=== PATIENT | male | born 1940 | race Caucasian/White ===

== ENCOUNTER → 2017-04-21 | Outpatient (CLI) | payer MEDICARE, OTHER ==
[2017-04-21 09:15] LABS: ALANINE AMINOTRANSFERASE 26 U/L (21-72); ALBUMIN 4.1 g/dL (3.5-5.0); ALKALINE PHOSPHATASE 82 U/L (38-126); ANION GAP 12 (5-19); ASPARTATE AMINO TRANSFERASE 16 U/L (17-59); BILIRUBIN,DIRECT 0.3 mg/dL (0.0-0.4); BILIRUBIN,TOTAL 0.6 mg/dL (0.2-1.3); BLOOD UREA NITROGEN 19 mg/dL (7-20); CALCIUM 10.2 mg/dL (8.4-10.2); CARBON DIOXIDE 27 mmol/L (22-30); CHLORIDE 101 mmol/L (98-107); CHOLESTEROL 125.48 mg/dL (0-200); Direct HDL 58 mg/dL (>40); GLUCOSE 211 mg/dL (75-110); MAGNESIUM 1.7 mg/dL (1.6-2.3); POTASSIUM 4.5 mmol/L (3.6-5.0); SODIUM 139.8 mmol/L (137-145); TRIGLYCERIDES 99 mg/dL (<150)
[2017-04-21 09:26] LABS: DIRECT LDL 47 mg/dL (<100)
== END ==
LOC: OD 08:17
PROVIDERS: ATTEND Internal Medicine Cardiovascular Disease
DX: E78.2 Mixed hyperlipidemia (principal); Z79.899 Other long term (current) drug therapy
CPT/HCPCS: 36415; 80048; 80061; 80076; 83735

== ENCOUNTER → 2017-12-29 | Outpatient (CLI) | payer MEDICARE, OTHER ==
[2017-12-29 15:53] LABS: ANION GAP 10 (5-19); BLOOD UREA NITROGEN 20 mg/dL (7-20); CALCIUM 9.2 mg/dL (8.4-10.2); CARBON DIOXIDE 26 mmol/L (22-30); CHLORIDE 103 mmol/L (98-107); GLUCOSE 246 mg/dL (75-110); POTASSIUM 4.5 mmol/L (3.6-5.0); SODIUM 138.7 mmol/L (137-145)
== END ==
LOC: OD 13:58
PROVIDERS: ATTEND Internal Medicine Cardiovascular Disease
DX: E83.42 Hypomagnesemia (principal); Z79.899 Other long term (current) drug therapy
CPT/HCPCS: 36415; 80048; 83735

== ENCOUNTER 2018-02-11 06:51 | Emergency (ER) | payer MEDICARE, OTHER ==
--- NOTE | 2018-02-11 07:55 | ER Document Report ---
ED GI/ - General Chief Complaint: Urinary Problem Stated Complaint: BLOOD IN URINE Time Seen by Provider: 02/11/18 07:17 Mode of Arrival: Ambulatory Information source: Patient Notes: 77 yo smoker c/o painless brown red hematuria since , and in er almost a blood clot with urgency but has some low left pelvic discomfort and some nausea. He thinks he has BPH. No fever, no vomiting or diarrhea. No flank pain. No testicle or scrotal pain. Hx hemorrhoids. Hx agent orange in [place]. TRAVEL OUTSIDE OF THE [place] IN LAST 30 DAYS: No - Related Data Allergies/Adverse Reactions: adhesive [Adhesive] Allergy (Verified 08/09/14 09:57) NSAIDS (Non-Steroidal Anti-Inflamma [Nsaids] Allergy (Verified 08/09/14 09:57) Penicillins Allergy (Verified 08/09/14 09:57) cholera vacine Allergy (Uncoded 04/17/13 23:34) yellow fever vacine Allergy (Uncoded 04/17/13 23:34) Past Medical History - General Information source: Patient - Social History Smoking Status: Current Every Day Smoker Chew tobacco use (# tins/day): No Frequency of alcohol use: None Drug Abuse: None Lives with: Alone Family History: CAD, Other - leukemia Patient has suicidal ideation: No Patient has homicidal ideation: No - Past Medical History Cardiac Medical History: Reports: Hx Coronary Artery Disease, Hx Hypercholesterolemia, Hx Hypertension Endocrine Medical History: Reports: Hx Diabetes Mellitus Type 2 Renal/ Medical History: Reports: Hx Benign Prostatic Hyperplasia, Hx Kidney Stones. Denies: Hx Peritoneal Dialysis GI Medical History: Reports: Hx Gastroesophageal Reflux Disease, Other - External hemorrhoids Musculoskeltal Medical History: Reports Hx Arthritis, Reports Other - ruptured disc low back, DDD Psychiatric Medical History: Reports: Hx Post Traumatic Stress Disorder Past Surgical History: Reports: Hx Cardiac Catheterization, Hx Cardiac Surgery, Hx Coronary Stent - Immunizations Hx Diphtheria, Pertussis, Tetanus Vaccination: Yes Hx Pneumococcal Vaccination: 08/30/10 Review of Systems - Review of Systems Constitutional: No symptoms reported EENT: No symptoms reported Cardiovascular: No symptoms reported Respiratory: No symptoms reported Gastrointestinal: No symptoms reported Genitourinary: No symptoms reported Male Genitourinary: See HPI Musculoskeletal: No symptoms reported Skin: No symptoms reported Hematologic/Lymphatic: No symptoms reported Neurological/Psychological: No symptoms reported Physical Exam - Vital signs Vitals: Temp Pulse Resp BP Pulse Ox 98.3 F 74 18 151/75 H 95 02/11/18 06:57 02/11/18 06:57 02/11/18 06:57 02/11/18 06:57 02/11/18 06:57 Interpretation: Normal - General General appearance: Appears well, Alert - HEENT Head: Normocephalic, Atraumatic Eyes: Normal Conjunctiva: Normal Pupils: PERRL Mucous membranes: Normal Pharynx: Normal Neck: Supple. No: Lymphadenopathy - Respiratory Respiratory status: No respiratory distress Chest status: Nontender Breath sounds: Normal Chest palpation: Normal - Cardiovascular Rhythm: Regular Heart sounds: Normal auscultation Murmur: No - Abdominal Inspection: Normal Distension: No distension Bowel sounds: Normal Tenderness: Tender - mild low left pelvis. No: Guarding, Rebound Organomegaly: No organomegaly - Back Back: Normal, Nontender. No: Tender - Extremities General upper extremity: Normal inspection, Nontender, Normal color, Normal ROM , Normal temperature General lower extremity: Normal inspection, Nontender, Normal color, Normal ROM , Normal temperature, Normal weight bearing. No: Radha's sign - Neurological Neuro grossly intact: Yes Cognition: Normal Orientation: AAOx4 Tanesha Coma Scale Eye Opening: Spontaneous Tanesha Coma Scale Verbal: Oriented Austin Coma Scale Motor: Obeys Commands Tanesha Coma Scale Total: 15 Speech: Normal Motor strength normal: LUE, RUE, LLE, RLE Sensory: Normal - Psychological Associated symptoms: Normal affect, Normal mood - Skin Skin Temperature: Warm Skin Moisture: Dry Skin Color: Normal Course - Re-evaluation Re-evalutation: 02/11/18 09:50 CT shows streaky perinephritic change. 6.8 mm bladder stone. Asymmetric wall thickening right lateral aspect of the urinary bladder concerning for mass. Enlarged prostate. Constipation. Call to dr collier radiologist. about the read. UA shows > 182 rbc, 16 wbc. White count is mildly elevated at 11.1. Hemoglobin and hematocrit are normal. Chemistry is normal except for glucose of 254. He does take metformin. The BUN and creatinine are normal. INR is 1.02 PTT is 35.9. I will discuss with the patient the need for urology evaluation and cystoscopy. Dr. Collier the radiologist stated that there is no other imaging that I can order today to help discern this bladder wall thickening. Will treat with Cipro (allergic to PCN) urine culture is pending - Vital Signs Vital signs: Temp Pulse Resp BP Pulse Ox 98.1 F 95 18 135/79 H 95 02/11/18 10:24 02/11/18 10:24 02/11/18 10:24 02/11/18 10:24 02/11/18 10:24 - Laboratory Result Diagrams: 02/11/18 08:35 02/11/18 08:35 Laboratory results interpreted by me: 02/11/18 02/11/18 02/11/18 07:45 08:35 08:35 WBC 11.1 H RBC 5.69 H Seg Neutrophils % 82.6 H Lymphocytes % 10.4 L Absolute Neutrophils 9.2 H APTT 35.9 H Glucose ALT Urine Protein 100 H Urine Glucose (UA) 150 H Urine Blood LARGE H 02/11/18 08:35 WBC RBC Seg Neutrophils % Lymphocytes % Absolute Neutrophils APTT Glucose 254 H ALT 17 L Urine Protein Urine Glucose (UA) Urine Blood Discharge - Discharge Clinical Impression: Bladder wall thickening, Hematuria, Bladder stone, Enlarged prostate Condition: Good Disposition: HOME, SELF-CARE Instructions: Hematuria ([facility]), Kidney Stone ([facility]) Additional Instructions: Take the lab work and the CD to your primary care [facility] for referral to urology. You will need a urology workup for this bladder wall thickening (possible mass) . If you drink plenty of fluids and urinate long strange you should passed a urinary stone. Take your medications Ciprofloxacin started pending urine culture Prescriptions: Ciprofloxacin HCl [Cipro 500 mg Tablet] 500 mg PO BID #10 tablet Referrals: MICH MOYER MD [NICOLAS DE LA CRUZ] - 02/14/18
[2018-02-11 08:26] LABS: BILIRUBIN,URINE NEGATIVE (NEGATIVE); GLUCOSE, URINE 150 mg/dL (NEGATIVE); KETONES,URINE NEGATIVE (NEGATIVE); LEUKOCYTE ESTERASE,URINE NEGATIVE (NEGATIVE); NITRITE,URINE NEGATIVE (NEGATIVE); PROTEIN,URINE 100 mg/dL (NEGATIVE); URINE SPECIFIC GRAVITY 1.023; UROBILINOGEN,URINE NEGATIVE mg/dL (<2.0)
[2018-02-11 08:28] LABS: APPEARANCE,URINE CLOUDY; COLOR,URINE BROWN
[2018-02-11 08:48] LABS: ABSOLUTE BASOPHILS # (AUTO) 0.1 10^3/uL (0.0-0.2); ABSOLUTE EOSINOPHILS # (AUTO) 0.1 10^3/uL (0.0-0.6); ABSOLUTE LYMPHOCYTES (AUTO) 1.2 10^3/uL (0.5-4.7); ABSOLUTE MONOCYTES (AUTO) 0.6 10^3/uL (0.1-1.4); ABSOLUTE NEUT (AUTO) 9.2 10^3/uL (1.7-8.2); BASOPHILS % (AUTO) 0.6 % (0-2); EOSINOPHILS % (AUTO) 0.9 % (0-6); HEMATOCRIT 48.2 % (37.9-51.0); HEMOGLOBIN 16.3 g/dL (13.5-17.0); LYMPHOCYTES % (AUTO) 10.4 % (13-45); MEAN CORPUSCULAR HEMOGLOBIN 28.6 pg (27.0-33.4); MEAN CORPUSCULAR HGB CONC 33.8 g/dL (32.0-36.0); MEAN CORPUSCULAR VOLUME 85 fl (80-97); MONOCYTES % (AUTO) 5.5 % (3-13); PLATELET COUNT 165 10^3/uL (150-450); RED BLOOD COUNT 5.69 10^6/uL (4.35-5.55); SEGMENTED NEUTROPHILS % (AUTO) 82.6 % (42-78); TOTAL CELLS COUNTED % (AUTO) 100 %; WHITE BLOOD COUNT 11.1 10^3/uL (4.0-10.5)
[2018-02-11 08:56] LABS: INTERNATIONAL RATION (INR) 1.02; PROTHROMBIN TIME 13.9 SEC (11.4-15.4)
[2018-02-11 08:57] LABS: PARTIAL THROMBOPLASTIN TIME 35.9 SEC (23.5-35.8)
[2018-02-11 09:12] LABS: ALANINE AMINOTRANSFERASE 17 U/L (21-72); ALBUMIN 4.1 g/dL (3.5-5.0); ALKALINE PHOSPHATASE 83 U/L (38-126); ANION GAP 11 (5-19); ASPARTATE AMINO TRANSFERASE 25 U/L (17-59); BILIRUBIN,DIRECT 0.4 mg/dL (0.0-0.4); BILIRUBIN,TOTAL 0.7 mg/dL (0.2-1.3); BLOOD UREA NITROGEN 18 mg/dL (7-20); CALCIUM 9.5 mg/dL (8.4-10.2); CARBON DIOXIDE 23 mmol/L (22-30); CHLORIDE 106 mmol/L (98-107); GLUCOSE 254 mg/dL (75-110); SODIUM 140.1 mmol/L (137-145); TOTAL PROTEIN 7.2 g/dL (6.3-8.2)
--- NOTE | 2018-02-11 09:15 | RADIOLOGY REPORT (SQ) ---
EXAM DESCRIPTION: CT LTD RENAL STONE PROTOCOL ON COMPLETED DATE/TIME: 02/11/2018 8:55 am REASON FOR STUDY: LLQ pain, hematuria COMPARISON: None. TECHNIQUE: CT scan of the abdomen and pelvis performed without intravenous or oral contrast. Images reviewed with lung, soft tissue, and bone windows. Reconstructed coronal and sagittal MPR images revi ewed. All images stored on PACS. All CT scanners at this facility use dose modulation, iterative reconstruction, and/or weight based d osing when appropriate to reduce radiation dose to as low as reasonably achievable (ALARA). [facility]: Dose Right [facility]: CareDose [facility]: Dose Right [facility]: Teradose 4D [facility]: Smart Geosophic RADIATION DOSE: CT Rad equipment meets quality standard of care and radiation dose reduction techniq ues were employed. CTDIvol: 10.2 mGy. DLP: 542 mGy-cm.mGy. LIMITATIONS: None. FINDINGS: LOWER CHEST: No significant findings. No nodules or infiltrates. NON-CONTRASTED LIVER, SPLEEN, ADRENALS: Evaluation limited by lack of IV contrast. No identified sign ificant masses. PANCREAS: No masses. No peripancreatic inflammatory changes. GALLBLADDER: No identified stones by CT criteria. No inflammatory changes to suggest cholecystitis. RIGHT KIDNEY AND URETER: No renal masses identified. There is slight streaky perinephric change. N o significant calcifications. No hydronephrosis or hydroureter. LEFT KIDNEY AND URETER: No renal mass identified. There is slight streaky perinephric change. No s ignificant calcifications. No hydronephrosis or hydroureter. AORTA AND RETROPERITONEUM: Dense aortic calcification without aneurysm. BOWEL AND PERITONEAL CAVITY: Increase air and fecal material fills the right colon and transverse col on. APPENDIX: Not seen PELVIS, BLADDER, AND ABDOMINAL WALL:Urinary bladder is not dilated. Prostate enlarged. 6.8 mm bladd er calcification concerning for stone. Asymmetric wall thickening right lateral aspect urinary bladd er concerning for mass. Bulging left inguinal ring contains peritoneal fat. BONES: No significant findings. OTHER: No other significant finding. IMPRESSION: No stone or hydronephrosis of either kidney. Streaky perinephric change is noted. 6.8 mm bladder stone. Asymmetric wall thickening right lateral aspect of the urinary bladder concern ing for mass. Enlarged prostate. Constipation. COMMENT: Quality ID # [id number]: Final reports with documentation of one or more dose reduction techniques (e.g., Automated exposure control, adjustment of the mA and/or kV according to patient size, use of iterative reconstruction technique) TECHNICAL DOCUMENTATION: JOB ID: [id number] [employer]- All Rights Reserved Reading location - IP/workstation name: [email or web address]
[2018-02-11] MEDS ORDERED: CIPROFLOXACIN HCL 500 MG TABLET PO ONE (10:21)
[2018-02-11 10:26] VITALS: BP 135/79
== END 2018-02-11 10:25 | disposition home or self-care (01) ==
LOC: ER 06:51
DX: N32.9 Bladder disorder, unspecified (principal); N21.0 Calculus in bladder; N40.0 Benign prostatic hyperplasia without lower urinary tract symptoms; R31.9 Hematuria, unspecified; R39.15 Urgency of urination; R10.2 Pelvic and perineal pain; R11.0 Nausea; F17.200 Nicotine dependence, unspecified, uncomplicated; I25.10 Atherosclerotic heart disease of native coronary artery without angina pectoris; I10 Essential (primary) hypertension; E11.9 Type 2 diabetes mellitus without complications
CPT/HCPCS: 36415; 76380; 80053; 81001; 85025; 85610; 85730; 87086; 99284

== ENCOUNTER → 2019-01-06 | Outpatient (CLI) | payer MEDICARE, OTHER ==
[2019-01-06 10:53] LABS: ALANINE AMINOTRANSFERASE 26 U/L (21-72); ALKALINE PHOSPHATASE 93 U/L (38-126); ANION GAP 12 (5-19); ASPARTATE AMINO TRANSFERASE 14 U/L (17-59); BILIRUBIN,DIRECT 0.3 mg/dL (0.0-0.4); BILIRUBIN,TOTAL 0.5 mg/dL (0.2-1.3); BLOOD UREA NITROGEN 16 mg/dL (7-20); CALCIUM 9.4 mg/dL (8.4-10.2); CARBON DIOXIDE 25 mmol/L (22-30); CHLORIDE 105 mmol/L (98-107); CHOLESTEROL 107.19 mg/dL (0-200); GLUCOSE 137 mg/dL (75-110); SODIUM 141.9 mmol/L (137-145); TOTAL PROTEIN 6.8 g/dL (6.3-8.2); TRIGLYCERIDES 101 mg/dL (<150)
[2019-01-06 11:04] LABS: DIRECT LDL 51 mg/dL (<100)
== END ==
LOC: OD 09:31
PROVIDERS: ATTEND Internal Medicine Cardiovascular Disease
DX: E83.42 Hypomagnesemia (principal); E78.2 Mixed hyperlipidemia; I95.9 Hypotension, unspecified; Z79.899 Other long term (current) drug therapy
CPT/HCPCS: 36415; 80048; 80061; 80076; 83735

== ENCOUNTER → 2019-04-13 | Outpatient (CLI) | payer MEDICARE, OTHER ==
[2019-04-13 16:32] LABS: HEMATOCRIT 48.5 % (37.9-51.0); HEMOGLOBIN 16.1 g/dL (13.5-17.0); MEAN CORPUSCULAR HEMOGLOBIN 28.1 pg (27.0-33.4); MEAN CORPUSCULAR HGB CONC 33.3 g/dL (32.0-36.0); MEAN CORPUSCULAR VOLUME 85 fl (80-97); PLATELET COUNT 170 10^3/uL (150-450); RED BLOOD COUNT 5.74 10^6/uL (4.35-5.55); RED CELL DISTRIBUTION WIDTH 14.5 % (11.5-14.0)
== END ==
LOC: OD 15:11
PROVIDERS: ATTEND Internal Medicine Cardiovascular Disease
DX: I25.10 Atherosclerotic heart disease of native coronary artery without angina pectoris (principal); E83.42 Hypomagnesemia; Z79.899 Other long term (current) drug therapy
CPT/HCPCS: 36415; 83735; 85027

== ENCOUNTER → 2019-07-19 | Outpatient (CLI) | payer MEDICARE, OTHER ==
[2019-07-19 17:34] LABS: ALBUMIN 3.9 g/dL (3.5-5.0); ALKALINE PHOSPHATASE 83 U/L (38-126); ANION GAP 11 (5-19); ASPARTATE AMINO TRANSFERASE 16 U/L (17-59); BILIRUBIN,DIRECT 0.2 mg/dL (0.0-0.4); BILIRUBIN,TOTAL 0.5 mg/dL (0.2-1.3); BLOOD UREA NITROGEN 18 mg/dL (7-20); CALCIUM 9.1 mg/dL (8.4-10.2); CARBON DIOXIDE 21 mmol/L (22-30); CHLORIDE 105 mmol/L (98-107); CHOLESTEROL 132.43 mg/dL (0-200); GLUCOSE 196 mg/dL (75-110); POTASSIUM 4.6 mmol/L (3.6-5.0); TOTAL PROTEIN 7.2 g/dL (6.3-8.2); TRIGLYCERIDES 109 mg/dL (<150)
[2019-07-19 17:44] LABS: DIRECT LDL 64 mg/dL (<100)
== END ==
LOC: OD 15:42
PROVIDERS: ATTEND Physician Assistant
DX: E78.2 Mixed hyperlipidemia (principal); E11.9 Type 2 diabetes mellitus without complications; E83.42 Hypomagnesemia; Z79.899 Other long term (current) drug therapy
CPT/HCPCS: 36415; 80048; 80061; 80076; 83735

== ENCOUNTER → 2019-10-18 | Outpatient (CLI) | payer MEDICARE, OTHER ==
[2019-10-18 13:42] LABS: ALBUMIN 3.9 g/dL (3.5-5.0); ALKALINE PHOSPHATASE 95 U/L (38-126); ANION GAP 10 (5-19); ASPARTATE AMINO TRANSFERASE 15 U/L (17-59); BILIRUBIN,TOTAL 0.5 mg/dL (0.2-1.3); BLOOD UREA NITROGEN 15 mg/dL (7-20); CALCIUM 9.9 mg/dL (8.4-10.2); CARBON DIOXIDE 27 mmol/L (22-30); CHLORIDE 101 mmol/L (98-107); CHOLESTEROL 146.43 mg/dL (0-200); GLUCOSE 283 mg/dL (75-110); POTASSIUM 4.5 mmol/L (3.6-5.0); TOTAL PROTEIN 6.9 g/dL (6.3-8.2); TRIGLYCERIDES 180 mg/dL (<150)
[2019-10-18 13:52] LABS: DIRECT LDL 70 mg/dL (<100)
== END ==
LOC: OD 12:40
PROVIDERS: ATTEND Physician Assistant
DX: E78.2 Mixed hyperlipidemia (principal); E11.9 Type 2 diabetes mellitus without complications; Z79.899 Other long term (current) drug therapy
CPT/HCPCS: 36415; 80048; 80061; 80076; 83735; 87070

== ENCOUNTER → 2020-02-14 | Outpatient (CLI) | payer MEDICARE, OTHER ==
[2020-02-14 17:55] LABS: ALKALINE PHOSPHATASE 75 U/L (38-126); ASPARTATE AMINO TRANSFERASE 16 U/L (17-59); BILIRUBIN,DIRECT 0.1 mg/dL (0.0-0.4); BILIRUBIN,TOTAL 0.6 mg/dL (0.2-1.3); CHOLESTEROL 107.66 mg/dL (0-200); TOTAL PROTEIN 6.8 g/dL (6.3-8.2); TRIGLYCERIDES 133 mg/dL (<150)
[2020-02-14 18:07] LABS: DIRECT LDL 41 mg/dL (<100)
== END ==
LOC: OD 15:50
PROVIDERS: ATTEND Physician Assistant
DX: E78.2 Mixed hyperlipidemia (principal); Z79.899 Other long term (current) drug therapy
CPT/HCPCS: 36415; 80061; 80076

== ENCOUNTER 2020-03-14 16:29 | Inpatient (IN) | payer MEDICARE, OTHER ==
[2020-03-14 18:35] LABS: ABSOLUTE BASOPHILS # (AUTO) 0.1 10^3/uL (0.0-0.2); ABSOLUTE EOSINOPHILS # (AUTO) 0.1 10^3/uL (0.0-0.6); ABSOLUTE LYMPHOCYTES (AUTO) 1.1 10^3/uL (0.5-4.7); ABSOLUTE MONOCYTES (AUTO) 1.1 10^3/uL (0.1-1.4); ABSOLUTE NEUT (AUTO) 13.8 10^3/uL (1.7-8.2); BASOPHILS % (AUTO) 0.4 % (0-2); EOSINOPHILS % (AUTO) 0.7 % (0-6); HEMATOCRIT 44.5 % (37.9-51.0); HEMOGLOBIN 15.1 g/dL (13.5-17.0); LYMPHOCYTES % (AUTO) 6.7 % (13-45); MEAN CORPUSCULAR HEMOGLOBIN 28.3 pg (27.0-33.4); MEAN CORPUSCULAR HGB CONC 33.9 g/dL (32.0-36.0); MEAN CORPUSCULAR VOLUME 84 fl (80-97); MONOCYTES % (AUTO) 6.9 % (3-13); PLATELET COUNT 191 10^3/uL (150-450); RED BLOOD COUNT 5.31 10^6/uL (4.35-5.55); RED CELL DISTRIBUTION WIDTH 14.6 % (11.5-14.0); SEGMENTED NEUTROPHILS % (AUTO) 85.3 % (42-78); TOTAL CELLS COUNTED % (AUTO) 100 %; WHITE BLOOD COUNT 16.2 10^3/uL (4.0-10.5)
--- NOTE | 2020-03-14 18:46 | RADIOLOGY REPORT (SQ) ---
EXAM DESCRIPTION: FOREARM RIGHT IMAGES COMPLETED DATE/TIME: 03/14/2020 6:36 pm REASON FOR STUDY: fell/ cellulitis COMPARISON: None. NUMBER OF VIEWS: Two views. TECHNIQUE: Two radiographic images acquired of the right forearm, including elbow and wrist in at le ast one projection. LIMITATIONS: None. FINDINGS: MINERALIZATION: Normal. BONES: No acute fracture. No worrisome bone lesions. SOFT TISSUES: No obvious swelling or foreign body. OTHER: No other significant finding. IMPRESSION: NEGATIVE STUDY OF THE RIGHT FOREARM. NO RADIOGRAPHIC EVIDENCE OF ACUTE INJURY. TECHNICAL DOCUMENTATION: JOB ID: [id number] 2010 [employer]- All Rights Reserved Reading location - IP/workstation name: [email or web address]
[2020-03-14 19:00] LABS: ALBUMIN 3.5 g/dL (3.5-5.0); ALKALINE PHOSPHATASE 74 U/L (38-126); ANION GAP 11 (5-19); ASPARTATE AMINO TRANSFERASE 16 U/L (17-59); BILIRUBIN,TOTAL 0.7 mg/dL (0.2-1.3); BLOOD UREA NITROGEN 14 mg/dL (7-20); CALCIUM 8.8 mg/dL (8.4-10.2); CARBON DIOXIDE 24 mmol/L (22-30); CHLORIDE 98 mmol/L (98-107); GLUCOSE 173 mg/dL (75-110); POTASSIUM 4.4 mmol/L (3.6-5.0); TOTAL PROTEIN 6.6 g/dL (6.3-8.2)
--- NOTE | 2020-03-14 19:00 | RADIOLOGY REPORT (SQ) ---
EXAM DESCRIPTION: CHEST SINGLE VIEW IMAGES COMPLETED DATE/TIME: 03/14/2020 6:36 pm REASON FOR STUDY: fell COMPARISON: 08/09/2014 EXAM PARAMETERS: NUMBER OF VIEWS: One view. TECHNIQUE: Single frontal radiographic view of the chest acquired. RADIATION DOSE: NA LIMITATIONS: None. FINDINGS: LUNGS AND PLEURA: No opacities, masses or pneumothorax. No pleural effusion. MEDIASTINUM AND HILAR STRUCTURES: No masses. Contour normal. HEART AND VASCULAR STRUCTURES: Heart normal in size. Normal vasculature. BONES: No acute findings. HARDWARE: None in the chest. OTHER: No other significant finding. IMPRESSION: NO ACUTE RADIOGRAPHIC FINDING IN THE CHEST. TECHNICAL DOCUMENTATION: JOB ID: [id number] 2010 [employer]- All Rights Reserved Reading location - IP/workstation name: [email or web address]
[2020-03-14] MEDS ORDERED: INSULIN ASPART PROTAMINE SUBCUT SCH (19:30)
[2020-03-14] MEDS ORDERED: (PENDING PHARMACY ID) (Rosuvastatin Calcium [Crestor 20 Mg Tablet] 20 MG) PO SCH (19:30)
[2020-03-14] MEDS ORDERED: [UNRECOGNIZED DRUG - OTHER] SUBCUT SCH (19:30)
[2020-03-14] MEDS ORDERED: INSULIN ASPART SUBCUT SCH (19:30)
[2020-03-14] MEDS: VANCOMYCIN HCL 1,000 MG in DEXTROSE 5%-WATER 250 ML IV SCH (19:57)
[2020-03-14] MEDS: ENOXAPARIN SODIUM INJ 40 MG/0.4 ML DISP.SYRIN SUBCUT SCH (19:57)
[2020-03-14] MEDS: OXYCODONE HCL IR 5 MG TABLET PO SCH (19:57)
[2020-03-14] MEDS: EZETIMIBE 10 MG TABLET PO SCH (19:57)
[2020-03-14] MEDS: ASPIRIN 81 MG TABLET, ENT COATED PO SCH (19:57)
[2020-03-14] MEDS: MAGNESIUM OXIDE 400 MG TABLET PO SCH (20:07)
[2020-03-14] MEDS: SITAGLIPTIN PHOSPHATE 50 MG TABLET PO SCH (20:08)
--- NOTE | 2020-03-14 21:12 | PDOC H&P ---
History of Present Illness Admission Date/PCP: 03/14/20 16:29 RAUL VEGA MD History of Present Illness: MILLA HENDERSON is a 79 year old male.He came to the office today as a new patient evaluation, history of repeated fall, history of diabetes mellitus, ongoing tobacco abuse, COPD, he has severe cellulitis of the right upper extremities there are also areas of cellulitis on the left he also have ulcerated lesion on the left leg, because of the severe cellulitis, his unkept state I felt patient best plan of care will be inpatient care, he was admitted directly from the office to the hospital for management.The complete blood count revealed leukocytosis, WBC 16.2 with a left shift Past Medical History Cardiac Medical History: Reports: Coronary Artery Disease, Hyperlipidema, Hypertension Pulmonary Medical History: Reports: Chronic Obstructive Pulmonary Disease (COPD) Endocrine Medical History: Reports: Diabetes Mellitus Type 2 GI Medical History: Reports: Gastroesophageal Reflux Disease Musculoskeltal Medical History: Reports: Arthritis Psychiatric Medical History: Reports: Depression, Post Traumatic Stress Disorder Past Surgical History Past Surgical History: Reports: Cardiac Catheterization, Coronary Stent, Orthopedic Surgery - back from ruptured disc Social History Smoking Status: Current Every Day Smoker Cigarettes Packs Per Day: 3 Number of Years Smokin Last Time Smoked: 03/14/2020 Frequency of Alcohol Use: None Hx Recreational Drug Use: No Drugs: None Hx Prescription Drug Abuse: No Family History Family History: CAD, Other - leukemia Parental Family History Reviewed: Yes Children Family History Reviewed: Yes Sibling(s) Family History Reviewed.: Yes Medication/Allergy Home Medications: Gabapentin [Neurontin] 600 mg PO QID 04/17/13 Rosuvastatin Calcium [Crestor 20 mg Tablet] 20 mg PO DAILY 04/17/13 Aspirin [Ecotrin 81 mg EC Tablet] 81 mg PO DAILY 03/14/20 Ezetimibe 10 mg PO DAILY 03/14/20 Insulin Aspart Prot/Insuln Asp [Novolog Mix 70-30 Flexpen] 26 unit SUBCUT MEALS 03/14/20 Magnesium Oxide 1,600 mg PO DAILY 03/14/20 Omeprazole 20 mg PO DAILY 03/14/20 Oxycodone HCl [Oxy-Ir 5 mg Tablet] 15 mg PO 5XD 03/14/20 Sitagliptin Phosphate [Januvia 50 mg Tablet] 100 mg PO DAILY 07/16/20 Allergies/Adverse Reactions: adhesive [Adhesive] Allergy (Verified 08/09/14 09:57) NSAIDS (Non-Steroidal Anti-Inflamma [Nsaids] Allergy (Verified 08/09/14 09:57) Penicillins Allergy (Verified 08/09/14 09:57) cholera vacine Allergy (Uncoded 04/17/13 23:34) yellow fever vacine Allergy (Uncoded 04/17/13 23:34) Review of Systems Constitutional: PRESENT: fatigue Eyes: ABSENT: visual disturbances Ears: ABSENT: hearing changes Cardiovascular: ABSENT: chest pain, dyspnea on exertion, edema, orthropnea, palpitations Respiratory: ABSENT: cough, hemoptysis Gastrointestinal: ABSENT: abdominal pain, constipation, diarrhea, hematemesis, hematochezia, nausea, vomiting Genitourinary: ABSENT: dysuria, hematuria Musculoskeletal: ABSENT: joint swelling Integumentary: PRESENT: erythema Neurological: ABSENT: abnormal gait, abnormal speech, confusion, dizziness, focal weakness, syncope Psychiatric: ABSENT: anxiety, depression, homidical ideation, suicidal ideation Endocrine: ABSENT: cold intolerance, heat intolerance, menstrual abnormalities, polydipsia, polyuria Hematologic/Lymphatic: ABSENT: easy bleeding, easy bruising, lymphadenopathy Physical Exam Vital Signs: Temp Pulse Resp BP Pulse Ox 98.4 F 82 18 138/65 H 95 03/14/20 19:33 03/14/20 19:33 03/14/20 19:33 03/14/20 19:33 03/14/20 19:33 Intake & Output 03/13/20 03/14/20 03/15/20 06:59 06:59 06:59 Intake Total 240 Balance 240 Weight 71.817 kg General appearance: PRESENT: other - Patient elderly male not in obvious distress, looks chronically ill Head exam: PRESENT: atraumatic, normocephalic Eye exam: PRESENT: PERRLA Ear exam: PRESENT: normal external ear exam Mouth exam: PRESENT: moist Neck exam: PRESENT: full ROM Respiratory exam: PRESENT: clear to auscultation carmen Cardiovascular exam: PRESENT: RRR, +S1, +S2 Vascular exam: PRESENT: normal capillary refill GI/Abdominal exam: PRESENT: normal bowel sounds, soft Rectal exam: PRESENT: deferred Neurological exam: PRESENT: alert, CN II-XII grossly intact Psychiatric exam: PRESENT: appropriate affect, normal mood Skin exam: PRESENT: dry, erythema, intact, warm Results Laboratory Results: 03/14/20 18:19 03/14/20 18:19 03/14/20 03/14/20 18:19 18:19 WBC 16.2 H RBC 5.31 Hgb 15.1 Hct 44.5 MCV 84 MCH 28.3 MCHC 33.9 RDW 14.6 H Plt Count 191 Seg Neutrophils % 85.3 H Sodium 133.3 L Potassium 4.4 Chloride 98 Carbon Dioxide 24 Anion Gap 11 BUN 14 Creatinine 0.75 Est GFR ( Amer) > 60 Glucose 173 H Calcium 8.8 Total Bilirubin 0.7 AST 16 L Alkaline Phosphatase 74 Total Protein 6.6 Albumin 3.5 Impressions: Chest X-Ray 03/14/20 00:00 IMPRESSION: NO ACUTE RADIOGRAPHIC FINDING IN THE CHEST. Forearm X-Ray 03/14/20 00:00 IMPRESSION: NEGATIVE STUDY OF THE RIGHT FOREARM. NO RADIOGRAPHIC EVIDENCE OF ACUTE INJURY. Assessment & Plan - Diagnosis (1) Cellulitis of left upper extremity Is this a current diagnosis for this admission?: Yes Plan: Patient was admitted with severe cellulitis, he will empirically be treated with IV antibiotic to cover MRSA, gram-negative organisms, gram-positive organisms (2) T2DM (type 2 diabetes mellitus) Qualifiers: Diabetes mellitus [facility] insulin use: without [facility] use Diabetes mellitus complication status: with neurologic complications Diabetes mellitus complication detail: with polyneuropathy Qualified Code(s): E11.42 - Type 2 diabetes mellitus with diabetic polyneuropathy Is this a current diagnosis for this admission?: Yes Plan: Continue medication for diabetes (3) COPD (chronic obstructive pulmonary disease) Qualifiers: COPD type: unspecified COPD Qualified Code(s): J44.9 - Chronic obstructive pulmonary disease, unspecified Is this a current diagnosis for this admission?: Yes
[2020-03-14 21:49] LABS: APPEARANCE,URINE SLIGHTLY-CLOUDY; BILIRUBIN,URINE NEGATIVE (NEGATIVE); GLUCOSE, URINE 150 mg/dL (NEGATIVE); KETONES,URINE 20 mg/dL (NEGATIVE); LEUKOCYTE ESTERASE,URINE NEGATIVE (NEGATIVE); NITRITE,URINE NEGATIVE (NEGATIVE); PROTEIN,URINE 30 mg/dL (NEGATIVE); URINE SPECIFIC GRAVITY 1.026
[2020-03-14 21:51] LABS: COLOR,URINE YELLOW
[2020-03-14] MEDS: PIPERACILLIN SODIUM/TAZOBACTAM 3.375 GM in NORMAL SALINE 100 ML IV SCH (21:52)
[2020-03-14] MEDS: MAG HYDROX/AL HYDROX/SIMETH SUSP 30 ML UDCUP PO PRN (21:52)
[2020-03-14] MEDS: GABAPENTIN 300 MG CAPSULE PO SCH (21:52)
[2020-03-14] MEDS ORDERED: ATORVASTATIN CALCIUM 40 MG TABLET PO SCH (22:00)
[2020-03-15] MEDS ORDERED: DEXTROSE 40% GEL 15 GM TUBE PO PRN (02:30)
[2020-03-15] MEDS ORDERED: DEXTROSE 40% GEL 15 GM TUBE X 2 PO PRN (02:30)
[2020-03-15] MEDS ORDERED: DEXTROSE 50%-WATER SYRINGE 25 GM/50 ML DOSE IV PRN (02:30)
[2020-03-15] MEDS ORDERED: DEXTROSE 50%-WATER SYRINGE 12.5 GM/25 ML DOSE IV PRN (02:30)
[2020-03-15] MEDS ORDERED: GLUCAGON,HUMAN RECOMB 1 MG INJ IM PRN (02:30)
[2020-03-15] MEDS ORDERED: OXYCODONE HCL IR 5 MG TABLET PO ONE (02:30)
[2020-03-15] MEDS: ONDANSETRON HCL INJ/PF 4 MG/2 ML SDV IV PRN ×3 (02:33→11:35)
[2020-03-15] MEDS: PIPERACILLIN SODIUM/TAZOBACTAM 3.375 GM in NORMAL SALINE 100 ML IV SCH ×3 (05:50→21:32)
[2020-03-15] MEDS ORDERED: PANTOPRAZOLE SODIUM 20 MG TABLET.DR PO SCH (06:00)
[2020-03-15] MEDS: MAG HYDROX/AL HYDROX/SIMETH SUSP 30 ML UDCUP PO PRN (07:45)
[2020-03-15] MEDS: OXYCODONE HCL IR 5 MG TABLET PO SCH ×2 (07:46→09:39)
[2020-03-15] MEDS ORDERED: INSULIN ASPART SUBCUT SCH (08:00)
[2020-03-15] MEDS ORDERED: HUM INSULIN NPH/REG INSULIN HM 100 UNIT/1 ML 3 ML SUBCUT SCH (08:00)
[2020-03-15] MEDS ORDERED: INSULIN ASPART PROTAMINE SUBCUT SCH (08:00)
[2020-03-15] MEDS ORDERED: [UNRECOGNIZED DRUG - OTHER] SUBCUT SCH (08:00)
[2020-03-15] MEDS: INSULIN LISPRO 100 UNIT/ML 3 ML VIAL SUBCUT SCH ×3 (08:13→17:56)
[2020-03-15] MEDS: VANCOMYCIN HCL 1,000 MG in DEXTROSE 5%-WATER 250 ML IV SCH ×2 (08:13→20:40)
[2020-03-15] MEDS: SITAGLIPTIN PHOSPHATE 50 MG TABLET PO SCH (09:39)
[2020-03-15] MEDS: EZETIMIBE 10 MG TABLET PO SCH (09:39)
[2020-03-15] MEDS: GABAPENTIN 300 MG CAPSULE PO SCH (09:39)
[2020-03-15] MEDS: MAGNESIUM OXIDE 400 MG TABLET PO SCH (09:39)
[2020-03-15] MEDS: ASPIRIN 81 MG TABLET, ENT COATED PO SCH (09:39)
[2020-03-15] MEDS: ENOXAPARIN SODIUM INJ 40 MG/0.4 ML DISP.SYRIN SUBCUT SCH (09:40)
[2020-03-15] MEDS ORDERED: PHARMACY COMMUNICATION ORDER MC NR (13:15)
[2020-03-15] MEDS ORDERED: MAG HYDROX/AL HYDROX/SIMETH SUSP 30 ML UDCUP NG PRN (13:30)
--- NOTE | 2020-03-15 14:33 | RADIOLOGY REPORT (SQ) ---
EXAM DESCRIPTION: KUB/ABDOMEN (SINGLE VIEW) IMAGES COMPLETED DATE/TIME: 03/15/2020 2:18 pm REASON FOR STUDY: Check Placement of NG Tube COMPARISON: None. NUMBER OF VIEWS: One view. TECHNIQUE: Supine radiographic image of the abdomen acquired. LIMITATIONS: None. FINDINGS: Limited view the abdomen was submitted for NG tube placement. Catheter tip lies in the le ft upper quadrant most likely within stomach. IMPRESSION: Limited view the abdomen for NG tube placement as described. TECHNICAL DOCUMENTATION: JOB ID: [id number] 2010 [employer]- All Rights Reserved Reading location - IP/workstation name: [email or web address]
[2020-03-15] MEDS: GABAPENTIN 300 MG CAPSULE NG SCH ×2 (14:48→17:57)
[2020-03-15 15:34] LABS: HEMATOCRIT 46.2 % (37.9-51.0); HEMOGLOBIN 15.4 g/dL (13.5-17.0); MEAN CORPUSCULAR HEMOGLOBIN 28.1 pg (27.0-33.4); MEAN CORPUSCULAR HGB CONC 33.4 g/dL (32.0-36.0); MEAN CORPUSCULAR VOLUME 84 fl (80-97); PLATELET COUNT 255 10^3/uL (150-450); RED BLOOD COUNT 5.48 10^6/uL (4.35-5.55); RED CELL DISTRIBUTION WIDTH 14.6 % (11.5-14.0); WHITE BLOOD COUNT 19.4 10^3/uL (4.0-10.5)
[2020-03-15] MEDS: OXYCODONE HCL IR 5 MG TABLET NG SCH ×2 (15:49→21:09)
[2020-03-15 16:09] LABS: ABSOLUTE MONOCYTES # (MANUAL) 0.4 10^3/uL (0.1-1.4); BASOPHILS % (MANUAL) 0 % (0-2); EOSINOPHILS % (MANUAL) 0 % (0-6); LYMPHOCYTES % (MANUAL) 4 % (13-45); MONOCYTES % (MANUAL) 2 % (3-13); SEGMENTED NEUTROPHILS % (MAN) 93 % (42-78); TOTAL CELLS COUNTED 100
[2020-03-15 16:10] LABS: ANISOCYTOSIS SLIGHT; OVALOCYTES SLIGHT; PLATELET COMMENT ADEQUATE; POIKILOCYTOSIS SLIGHT
[2020-03-15] MEDS: PANTOPRAZOLE SODIUM 40 MG VIAL IV SCH (17:57)
[2020-03-15 18:19] LABS: HEMATOCRIT 44.4 % (37.9-51.0); MEAN CORPUSCULAR HEMOGLOBIN 28.4 pg (27.0-33.4); MEAN CORPUSCULAR HGB CONC 33.8 g/dL (32.0-36.0); MEAN CORPUSCULAR VOLUME 84 fl (80-97); PLATELET COUNT 226 10^3/uL (150-450); RED BLOOD COUNT 5.28 10^6/uL (4.35-5.55); RED CELL DISTRIBUTION WIDTH 14.6 % (11.5-14.0); WHITE BLOOD COUNT 18.8 10^3/uL (4.0-10.5)
[2020-03-15 18:37] LABS: ABSOLUTE LYMPHOCYTES# (MANUAL) 1.1 10^3/uL (0.5-4.7); ABSOLUTE MONOCYTES # (MANUAL) 0.2 10^3/uL (0.1-1.4); BASOPHILS % (MANUAL) 0 % (0-2); EOSINOPHILS % (MANUAL) 0 % (0-6); LYMPHOCYTES % (MANUAL) 6 % (13-45); MONOCYTES % (MANUAL) 1 % (3-13); SEGMENTED NEUTROPHILS % (MAN) 93 % (42-78); TOTAL CELLS COUNTED 100
[2020-03-15 18:39] LABS: ALBUMIN 3.4 g/dL (3.5-5.0); ALKALINE PHOSPHATASE 73 U/L (38-126); ANION GAP 12 (5-19); ANISOCYTOSIS SLIGHT; ASPARTATE AMINO TRANSFERASE 21 U/L (17-59); BILIRUBIN,DIRECT 0.1 mg/dL (0.0-0.4); BILIRUBIN,TOTAL 0.7 mg/dL (0.2-1.3); BLOOD UREA NITROGEN 27 mg/dL (7-20); CALCIUM 8.5 mg/dL (8.4-10.2); CARBON DIOXIDE 31 mmol/L (22-30); CHLORIDE 92 mmol/L (98-107); GLUCOSE 274 mg/dL (75-110); OVALOCYTES SLIGHT; PLATELET COMMENT ADEQUATE; POIKILOCYTOSIS SLIGHT; POTASSIUM 3.5 mmol/L (3.6-5.0); TOTAL PROTEIN 6.4 g/dL (6.3-8.2); TOXIC GRANULATION SLIGHT
[2020-03-15 18:40] LABS: PLATELET LARGE PRESENT
--- NOTE | 2020-03-15 19:41 | PDOC PROGRESS REPORT ---
Subjective Progress Note for:: 03/15/20 Subjective:: Patient seen by the bedside, he developed hematemesis, severe, coffee-ground, nasogastric tube inserted Reason For Visit: CELLULITIS OF RIGHT ARM,T2DM,FALLS,OPORD DEPEDENCE Physical Exam Vital Signs: Temp Pulse Resp BP Pulse Ox 97.8 F 93 17 133/72 H 96 03/15/20 16:30 03/15/20 16:30 03/15/20 16:30 03/15/20 16:30 03/15/20 16:30 Intake & Output 03/14/20 03/15/20 03/16/20 06:59 06:59 06:59 Intake Total 990 590 Output Total 450 2250 Balance 540 -1660 Weight 67.7 kg 67.7 kg General appearance: PRESENT: no acute distress Eye exam: PRESENT: PERRLA Respiratory exam: PRESENT: clear to auscultation carmen Cardiovascular exam: PRESENT: +S1, +S2 GI/Abdominal exam: PRESENT: soft Neurological exam: PRESENT: alert Results Laboratory Results: 03/15/20 17:40 03/15/20 17:40 03/14/20 03/15/20 03/15/20 21:25 14:30 17:40 WBC 19.4 H RBC 5.48 Hgb 15.4 Hct 46.2 MCV 84 MCH 28.1 MCHC 33.4 RDW 14.6 H Plt Count 255 Seg Neutrophils % Not Reportable Sodium 135.4 L Potassium 3.5 L Chloride 92 L Carbon Dioxide 31 H Anion Gap 12 BUN 27 H Creatinine 0.70 Est GFR ( Amer) > 60 Glucose 274 H Calcium 8.5 Total Bilirubin 0.7 AST 21 Alkaline Phosphatase 73 Total Protein 6.4 Albumin 3.4 L Urine Color YELLOW Urine Appearance SLIGHTLY-CLOUDY Urine pH 5.0 Ur Specific Jaffrey 1.026 Urine Protein 30 H Urine Glucose (UA) 150 H Urine Ketones 20 H Urine Blood NEGATIVE Urine Nitrite NEGATIVE Ur Leukocyte Esterase NEGATIVE Urine WBC (Auto) 2 Urine RBC (Auto) 2 03/15/20 17:40 WBC 18.8 H RBC 5.28 Hgb 15.0 Hct 44.4 MCV 84 MCH 28.4 MCHC 33.8 RDW 14.6 H Plt Count 226 Seg Neutrophils % Not Reportable Sodium Potassium Chloride Carbon Dioxide Anion Gap BUN Creatinine Est GFR ( Amer) Glucose Calcium Total Bilirubin AST Alkaline Phosphatase Total Protein Albumin Urine Color Urine Appearance Urine pH Ur Specific Jaffrey Urine Protein Urine Glucose (UA) Urine Ketones Urine Blood Urine Nitrite Ur Leukocyte Esterase Urine WBC (Auto) Urine RBC (Auto) Impressions: Chest X-Ray 03/14/20 00:00 IMPRESSION: NO ACUTE RADIOGRAPHIC FINDING IN THE CHEST. Forearm X-Ray 03/14/20 00:00 IMPRESSION: NEGATIVE STUDY OF THE RIGHT FOREARM. NO RADIOGRAPHIC EVIDENCE OF ACUTE INJURY. KUB X-Ray 03/15/20 13:16 IMPRESSION: Limited view the abdomen for NG tube placement as described. Assessment & Plan - Diagnosis (1) Cellulitis of left upper extremity Is this a current diagnosis for this admission?: Yes Plan: Continue IV antibiotic (2) T2DM (type 2 diabetes mellitus) Qualifiers: Diabetes mellitus [facility] insulin use: without [facility] use Diabetes mellitus complication status: with neurologic complications Diabetes mellitus complication detail: with polyneuropathy Qualified Code(s): E11.42 - Type 2 diabetes mellitus with diabetic polyneuropathy Is this a current diagnosis for this admission?: Yes (3) COPD (chronic obstructive pulmonary disease) Qualifiers: COPD type: unspecified COPD Qualified Code(s): J44.9 - Chronic obstructive pulmonary disease, unspecified Is this a current diagnosis for this admission?: Yes (4) Upper GI bleed Is this a current diagnosis for this admission?: Yes Plan: Patient with upper GI bleed, NG tube inserted, start Protonix 40 Mg IV every 12, keep n.p.o., consult GI for upper endoscopy. I spoke to Dr. Montero, patient will be scoped tomorrow - Time Time Spent with patient: 35 or more minutes Level of Care: IMCU Medications reviewed and adjusted accordingly: Yes
[2020-03-15 20:45] LABS: ABSOLUTE BASOPHILS # (AUTO) 0.1 10^3/uL (0.0-0.2); ABSOLUTE LYMPHOCYTES (AUTO) 1.2 10^3/uL (0.5-4.7); ABSOLUTE MONOCYTES (AUTO) 1.1 10^3/uL (0.1-1.4); ABSOLUTE NEUT (AUTO) 16.8 10^3/uL (1.7-8.2); BASOPHILS % (AUTO) 0.3 % (0-2); EOSINOPHILS % (AUTO) 0.1 % (0-6); HEMATOCRIT 41.8 % (37.9-51.0); LYMPHOCYTES % (AUTO) 6.1 % (13-45); MEAN CORPUSCULAR HGB CONC 33.6 g/dL (32.0-36.0); MEAN CORPUSCULAR VOLUME 83 fl (80-97); PLATELET COUNT 229 10^3/uL (150-450); RED BLOOD COUNT 5.02 10^6/uL (4.35-5.55); RED CELL DISTRIBUTION WIDTH 14.4 % (11.5-14.0); SEGMENTED NEUTROPHILS % (AUTO) 87.5 % (42-78); TOTAL CELLS COUNTED % (AUTO) 100 %; WHITE BLOOD COUNT 19.2 10^3/uL (4.0-10.5)
[2020-03-15 23:50] LABS: HEMOGLOBIN 14.5 g/dL (13.5-17.0); MEAN CORPUSCULAR HEMOGLOBIN 28.3 pg (27.0-33.4); MEAN CORPUSCULAR HGB CONC 33.7 g/dL (32.0-36.0); MEAN CORPUSCULAR VOLUME 84 fl (80-97); PLATELET COUNT 241 10^3/uL (150-450); RED BLOOD COUNT 5.12 10^6/uL (4.35-5.55); RED CELL DISTRIBUTION WIDTH 14.3 % (11.5-14.0); WHITE BLOOD COUNT 19.2 10^3/uL (4.0-10.5)
[2020-03-16 00:30] LABS: ABSOLUTE LYMPHOCYTES# (MANUAL) 1.5 10^3/uL (0.5-4.7); ABSOLUTE MONOCYTES # (MANUAL) 1.5 10^3/uL (0.1-1.4); ANISOCYTOSIS 1+; BAND NEUTROPHILS % (MANUAL) 4 % (3-5); BASOPHILS % (MANUAL) 0 % (0-2); EOSINOPHILS % (MANUAL) 1 % (0-6); LYMPHOCYTES % (MANUAL) 8 % (13-45); MONOCYTES % (MANUAL) 8 % (3-13); PLATELET COMMENT ADEQUATE; POLYCHROMASIA 1+; SEGMENTED NEUTROPHILS % (MAN) 79 % (42-78); TOTAL CELLS COUNTED 100
[2020-03-16] MEDS: GABAPENTIN 300 MG CAPSULE NG SCH ×5 (01:06→21:07)
[2020-03-16] MEDS: ATORVASTATIN CALCIUM 40 MG TABLET NG SCH ×2 (01:06→21:07)
[2020-03-16] MEDS: INSULIN LISPRO 100 UNIT/ML 3 ML VIAL SUBCUT SCH ×4 (01:09→17:21)
[2020-03-16] MEDS: RINGERS SOLUTION,LACTATED 1,000 ML IV PRN ×2 (03:23→14:13)
[2020-03-16] MEDS: HYDROMORPHONE HCL INJ/PF 2 MG/ML AMPULE IV PRN (06:25)
[2020-03-16] MEDS: PIPERACILLIN SODIUM/TAZOBACTAM 3.375 GM in NORMAL SALINE 100 ML IV SCH ×3 (06:26→21:08)
[2020-03-16] MEDS: PANTOPRAZOLE SODIUM 40 MG VIAL IV SCH (06:26)
[2020-03-16] MEDS: OXYCODONE HCL IR 5 MG TABLET NG SCH ×4 (06:30→17:14)
[2020-03-16] MEDS: VANCOMYCIN HCL 1,000 MG in DEXTROSE 5%-WATER 250 ML IV SCH (08:16)
[2020-03-16] MEDS ORDERED: ASPIRIN 81 MG TABLET, CHEWABLE NG SCH (10:00)
[2020-03-16] MEDS ORDERED: SITAGLIPTIN PHOSPHATE 50 MG TABLET NG SCH (10:00)
[2020-03-16] MEDS ORDERED: MAGNESIUM OXIDE 400 MG TABLET NG SCH (10:00)
[2020-03-16] MEDS ORDERED: EZETIMIBE 10 MG TABLET NG SCH (10:00)
[2020-03-16] MEDS ORDERED: EPINEPHRINE INJ 1 MG/10 ML DISP.SYRIN ONE (10:30)
[2020-03-16] MEDS: ENOXAPARIN SODIUM INJ 40 MG/0.4 ML DISP.SYRIN SUBCUT SCH (11:19)
[2020-03-16] MEDS ORDERED: PROPOFOL INJ 200 MG/20 ML VIAL IV ONE (12:11)
--- NOTE | 2020-03-16 12:33 | PDOC CONSULTATION ---
Consultation Consult Date: 03/15/20 Provider Consulted: VALERIE URIOSTEGUI History of Present Illness Admission Date/PCP: 03/14/20 16:29 RAUL VEGA MD History of Present Illness: MILLA HENDERSON is a 79 year old male Patient who was admitted directly from the office with cellulitis. He started throwing up coffee-ground while in the hospital hence the GI consultation. An NG tube was inserted which also drained some coffee-ground. He denies previous history of ulcers. There is no abdominal pain but he admits to heartburn. His hemoglobin was 15 on admission and this did not drop. Past Medical History Cardiac Medical History: Reports: Coronary Artery Disease, Hyperlipidema, Hypertension Pulmonary Medical History: Reports: Chronic Obstructive Pulmonary Disease (COPD) Endocrine Medical History: Reports: Diabetes Mellitus Type 1, Diabetes Mellitus Type 2 GI Medical History: Reports: Gastroesophageal Reflux Disease Musculoskeltal Medical History: Reports: Arthritis Psychiatric Medical History: Reports: Depression, Post Traumatic Stress Disorder Past Surgical History Past Surgical History: Reports: Cardiac Catheterization, Coronary Stent, Orthopedic Surgery - back from ruptured disc Social History Smoking Status: Current Every Day Smoker Cigarettes Packs Per Day: 3 Number of Years Smokin Last Time Smoked: 03/14/2020 Frequency of Alcohol Use: None Hx Recreational Drug Use: No Drugs: None Hx Prescription Drug Abuse: No Family History Family History: CAD, Other - leukemia Parental Family History Reviewed: No Children Family History Reviewed: NA Sibling(s) Family History Reviewed.: NA Medication/Allergy Home Medications: Gabapentin [Neurontin] 600 mg PO QID 04/17/13 Rosuvastatin Calcium [Crestor 20 mg Tablet] 20 mg PO DAILY 04/17/13 Aspirin [Ecotrin 81 mg EC Tablet] 81 mg PO DAILY 03/14/20 Ezetimibe 10 mg PO DAILY 03/14/20 Insulin Aspart Prot/Insuln Asp [Novolog Mix 70-30 Flexpen] 26 unit SUBCUT MEALS 03/14/20 Magnesium Oxide 1,600 mg PO DAILY 03/14/20 Omeprazole 20 mg PO DAILY 03/14/20 Oxycodone HCl [Oxy-Ir 5 mg Tablet] 15 mg PO 5XD 03/14/20 Sitagliptin Phosphate [Januvia 50 mg Tablet] 100 mg PO DAILY 03/14/20 Allergies/Adverse Reactions: adhesive [Adhesive] Allergy (Verified 08/09/14 09:57) NSAIDS (Non-Steroidal Anti-Inflamma [Nsaids] Allergy (Verified 08/09/14 09:57) Penicillins Allergy (Verified 08/09/14 09:57) cholera vacine Allergy (Uncoded 04/17/13 23:34) yellow fever vacine Allergy (Uncoded 04/17/13 23:34) Review of Systems All systems: reviewed and no additional remarkable complaints except as stated Physical Exam Vital Signs: Temp Pulse Resp BP Pulse Ox 98.1 F 80 21 H 112/66 95 03/16/20 11:26 03/16/20 11:26 03/16/20 11:26 03/16/20 11:26 03/16/20 11:26 Intake & Output 03/15/20 03/16/20 03/17/20 06:59 06:59 06:59 Intake Total 990 690 750 Output Total 450 2675 Balance 540 -1985 750 Weight 67.7 kg 66.8 kg Exam: General: Patient is alert and looks well. HEENT: There is no pallor or jaundice. PERRLA. Oropharynx normal Respiratory: No chest deformity. No respiratory distress. Chest wall palpitation was unremarkable. Breath sounds were reduced Cardiovascular: Heart sounds 1 and 2 normal with no murmurs. Abdominal: Not distended. Soft and nontender. Liver and spleen not palpable. No ascites demonstrated. Bowel sounds active. Rectal examination was deferred. Extremities: No edema Neurological: Alert and oriented x4. Grossly nonfocal. Normal speech Skin: No significant rash Psychological: Normal affect Results Laboratory Results: 03/15/20 23:37 03/15/20 17:40 03/15/20 03/15/20 03/15/20 14:30 17:40 17:40 WBC 19.4 H 18.8 H RBC 5.48 5.28 Hgb 15.4 15.0 Hct 46.2 44.4 MCV 84 84 MCH 28.1 28.4 MCHC 33.4 33.8 RDW 14.6 H 14.6 H Plt Count 255 226 Seg Neutrophils % Not Reportable Not Reportable Sodium 135.4 L Potassium 3.5 L Chloride 92 L Carbon Dioxide 31 H Anion Gap 12 BUN 27 H Creatinine 0.70 Est GFR ( Amer) > 60 Glucose 274 H Calcium 8.5 Total Bilirubin 0.7 AST 21 Alkaline Phosphatase 73 Total Protein 6.4 Albumin 3.4 L 07/17/20 07/17/20 20:30 23:37 WBC 19.2 H 19.2 H RBC 5.02 5.12 Hgb 14.0 14.5 Hct 41.8 43.0 MCV 83 84 MCH 28.0 28.3 MCHC 33.6 33.7 RDW 14.4 H 14.3 H Plt Count 229 241 Seg Neutrophils % 87.5 H Not Reportable Sodium Potassium Chloride Carbon Dioxide Anion Gap BUN Creatinine Est GFR ( Amer) Glucose Calcium Total Bilirubin AST Alkaline Phosphatase Total Protein Albumin Impressions: Chest X-Ray 03/14/20 00:00 IMPRESSION: NO ACUTE RADIOGRAPHIC FINDING IN THE CHEST. Forearm X-Ray 03/14/20 00:00 IMPRESSION: NEGATIVE STUDY OF THE RIGHT FOREARM. NO RADIOGRAPHIC EVIDENCE OF ACUTE INJURY. KUB X-Ray 03/15/20 13:16 IMPRESSION: Limited view the abdomen for NG tube placement as described. Assessment & Plan - Diagnosis (1) Upper GI bleed Is this a current diagnosis for this admission?: Yes Plan: Differential diagnosis include peptic ulcer disease, esophagitis, upper GI neoplasm. He will undergo an EGD and his CBC will be followed. (2) COPD (chronic obstructive pulmonary disease) Qualifiers: COPD type: unspecified COPD Qualified Code(s): J44.9 - Chronic obstructive pulmonary disease, unspecified Is this a current diagnosis for this admission?: Yes (3) Cellulitis of left upper extremity Is this a current diagnosis for this admission?: Yes
--- NOTE | 2020-03-16 12:35 | Operative Report ---
Operative Report DATE OF SURGERY: 03/16/20 Operative Report: Pre-op diagnosis: GI bleed Post-op diagnosis: Severe grade D esophagitis Surgery: Esophagogastroduodenoscopy with biopsy Medications: As per anesthesia Tissue removed: Antral biopsy for pathology Procedure: After informed consent obtained from patient, the throat was sprayed with Hurricane and conscious sedation was achieved. The upper endoscope was inserted into the esophagus under direct vision and advanced into the stomach. The duodenum was entered and examined to the second part. Endoscope was then slowly pulled out of the patient as the mucosa was examined into details. Patient tolerated procedure well. Findings Esophagus: There was diffuse ulceration and exudates starting from the GE junction situated at 43 cm and involving the mid and distal esophagus. Antrum: Normal Body: Normal Fundus: Normal Duodenum first part: Normal Duodenum second part: Normal Plan: Continue PPI twice daily and use Carafate 4 times a day for 2 weeks OPERATION: .
[2020-03-16] MEDS ORDERED: MEPERIDINE HCL/PF INJ 25 MG/1 ML DISP.SYRIN IV PRN (12:43)
[2020-03-16 14:56] LABS: HEMATOCRIT 41.1 % (37.9-51.0); HEMOGLOBIN 13.8 g/dL (13.5-17.0); MEAN CORPUSCULAR HEMOGLOBIN 28.4 pg (27.0-33.4); MEAN CORPUSCULAR HGB CONC 33.6 g/dL (32.0-36.0); MEAN CORPUSCULAR VOLUME 85 fl (80-97); PLATELET COUNT 211 10^3/uL (150-450); RED BLOOD COUNT 4.86 10^6/uL (4.35-5.55); RED CELL DISTRIBUTION WIDTH 14.5 % (11.5-14.0); WHITE BLOOD COUNT 20.6 10^3/uL (4.0-10.5)
--- NOTE | 2020-03-16 15:01 | PDOC PROGRESS REPORT ---
Subjective Progress Note for:: 03/16/20 Subjective:: Patient seen by the bedside, he had upper endoscopy done today, found to have ulceration of the distal esophagus Reason For Visit: CELLULITIS OF RIGHT ARM,T2DM,FALLS,OPORD DEPEDENCE Physical Exam Vital Signs: Temp Pulse Resp BP Pulse Ox 98.1 F 80 21 H 112/66 95 03/16/20 11:26 03/16/20 11:26 03/16/20 11:26 03/16/20 11:26 03/16/20 11:26 Intake & Output 03/15/20 03/16/20 03/17/20 06:59 06:59 06:59 Intake Total 889 034 5072 Output Total 450 2675 Balance 540 -1985 1750 Weight 67.7 kg 66.8 kg General appearance: PRESENT: no acute distress Eye exam: PRESENT: PERRLA Respiratory exam: PRESENT: clear to auscultation carmen Cardiovascular exam: PRESENT: +S1, +S2 GI/Abdominal exam: PRESENT: soft Neurological exam: PRESENT: alert Results Laboratory Results: 03/16/20 07:25 03/15/20 03/15/20 03/15/20 14:30 17:40 17:40 WBC 19.4 H 18.8 H RBC 5.48 5.28 Hgb 15.4 15.0 Hct 46.2 44.4 MCV 84 84 MCH 28.1 28.4 MCHC 33.4 33.8 RDW 14.6 H 14.6 H Plt Count 255 226 Seg Neutrophils % Not Reportable Not Reportable Sodium 135.4 L Potassium 3.5 L Chloride 92 L Carbon Dioxide 31 H Anion Gap 12 BUN 27 H Creatinine 0.70 Est GFR ( Amer) > 60 Glucose 274 H Calcium 8.5 Total Bilirubin 0.7 AST 21 Alkaline Phosphatase 73 Total Protein 6.4 Albumin 3.4 L 03/15/20 03/15/20 03/16/20 20:30 23:37 07:25 WBC 19.2 H 19.2 H RBC 5.02 5.12 Hgb 14.0 14.5 Hct 41.8 43.0 MCV 83 84 MCH 28.0 28.3 MCHC 33.6 33.7 RDW 14.4 H 14.3 H Plt Count 229 241 Seg Neutrophils % 87.5 H Not Reportable Sodium Potassium Chloride Carbon Dioxide Anion Gap BUN Creatinine 0.74 Est GFR ( Amer) > 60 Glucose Calcium Total Bilirubin AST Alkaline Phosphatase Total Protein Albumin Impressions: Chest X-Ray 03/14/20 00:00 IMPRESSION: NO ACUTE RADIOGRAPHIC FINDING IN THE CHEST. Forearm X-Ray 03/14/20 00:00 IMPRESSION: NEGATIVE STUDY OF THE RIGHT FOREARM. NO RADIOGRAPHIC EVIDENCE OF ACUTE INJURY. KUB X-Ray 03/15/20 13:16 IMPRESSION: Limited view the abdomen for NG tube placement as described. Assessment & Plan - Diagnosis (1) Cellulitis of left upper extremity Is this a current diagnosis for this admission?: Yes Plan: Continue IV antibiotic for cellulitis (2) T2DM (type 2 diabetes mellitus) Qualifiers: Diabetes mellitus prison insulin use: without prison use Diabetes mellitus complication status: with neurologic complications Diabetes mellitus complication detail: with polyneuropathy Qualified Code(s): E11.42 - Type 2 diabetes mellitus with diabetic polyneuropathy Is this a current diagnosis for this admission?: Yes (3) COPD (chronic obstructive pulmonary disease) Qualifiers: COPD type: unspecified COPD Qualified Code(s): J44.9 - Chronic obstructive pulmonary disease, unspecified Is this a current diagnosis for this admission?: Yes (4) Upper GI bleed Is this a current diagnosis for this admission?: Yes Plan: EGD was done today, diffuse extensive ulceration of the distal esophagus (5) Esophageal ulceration Qualifiers: Esophageal ulcer bleeding: with bleeding Qualified Code(s): K22.11 - Ulcer of esophagus with bleeding Is this a current diagnosis for this admission?: Yes Plan: Continue IV Protonix - Time Time Spent with patient: 35 or more minutes Level of Care: IMCU Medications reviewed and adjusted accordingly: Yes Within: Other
[2020-03-16 15:19] LABS: ABSOLUTE LYMPHOCYTES# (MANUAL) 0.6 10^3/uL (0.5-4.7); ABSOLUTE MONOCYTES # (MANUAL) 1.2 10^3/uL (0.1-1.4); BASOPHILS % (MANUAL) 0 % (0-2); EOSINOPHILS % (MANUAL) 0 % (0-6); LYMPHOCYTES % (MANUAL) 3 % (13-45); MONOCYTES % (MANUAL) 6 % (3-13); SEGMENTED NEUTROPHILS % (MAN) 91 % (42-78); TOTAL CELLS COUNTED 100
[2020-03-16 15:20] LABS: ANISOCYTOSIS SLIGHT; BURR CELLS SLIGHT; OVALOCYTES 1+; PLATELET COMMENT ADEQUATE
[2020-03-16 16:16] LABS: ALBUMIN 2.9 g/dL (3.5-5.0); ALKALINE PHOSPHATASE 68 U/L (38-126); ANION GAP 9 (5-19); ASPARTATE AMINO TRANSFERASE 14 U/L (17-59); BILIRUBIN,DIRECT 0.1 mg/dL (0.0-0.4); BILIRUBIN,TOTAL 0.7 mg/dL (0.2-1.3); BLOOD UREA NITROGEN 19 mg/dL (7-20); CALCIUM 8.2 mg/dL (8.4-10.2); CARBON DIOXIDE 32 mmol/L (22-30); CHLORIDE 94 mmol/L (98-107); GLUCOSE 229 mg/dL (75-110); TOTAL PROTEIN 5.7 g/dL (6.3-8.2)
[2020-03-16 16:20] LABS: POTASSIUM 2.8 mmol/L (3.6-5.0)
[2020-03-16] MEDS: SUCRALFATE 1 GM TABLET PO SCH ×2 (17:14→21:07)
[2020-03-16] MEDS: POTASSIUM CHLORIDE 20 MEQ/50 ML RTU IV SCH ×3 (17:14→21:21)
[2020-03-16] MEDS: PANTOPRAZOLE SODIUM 40 MG TABLET.DR PO SCH (17:21)
[2020-03-16] MEDS: VANCOMYCIN HCL 1,250 MG in DEXTROSE 5%-WATER 250 ML IV SCH (20:54)
[2020-03-17] MEDS: INSULIN LISPRO 100 UNIT/ML 3 ML VIAL SUBCUT SCH ×4 (00:49→16:01)
[2020-03-17] MEDS: ONDANSETRON HCL INJ/PF 4 MG/2 ML SDV IV PRN (03:37)
[2020-03-17] MEDS: HYDROMORPHONE HCL INJ/PF 2 MG/ML AMPULE IV PRN ×2 (03:37→21:26)
[2020-03-17] MEDS ORDERED: MAG HYDROX/AL HYDROX/SIMETH SUSP 30 ML UDCUP PO PRN (04:30)
[2020-03-17] MEDS: PIPERACILLIN SODIUM/TAZOBACTAM 3.375 GM in NORMAL SALINE 100 ML IV SCH ×3 (05:15→21:17)
[2020-03-17 06:33] LABS: ABSOLUTE LYMPHOCYTES (AUTO) 1.4 10^3/uL (0.5-4.7); ABSOLUTE MONOCYTES (AUTO) 0.9 10^3/uL (0.1-1.4); ABSOLUTE NEUT (AUTO) 9.3 10^3/uL (1.7-8.2); BASOPHILS % (AUTO) 0.4 % (0-2); EOSINOPHILS % (AUTO) 0.2 % (0-6); HEMATOCRIT 34.4 % (37.9-51.0); LYMPHOCYTES % (AUTO) 12.1 % (13-45); MEAN CORPUSCULAR HEMOGLOBIN 28.2 pg (27.0-33.4); MEAN CORPUSCULAR HGB CONC 33.6 g/dL (32.0-36.0); MEAN CORPUSCULAR VOLUME 84 fl (80-97); MONOCYTES % (AUTO) 7.6 % (3-13); PLATELET COUNT 194 10^3/uL (150-450); RED BLOOD COUNT 4.09 10^6/uL (4.35-5.55); RED CELL DISTRIBUTION WIDTH 14.2 % (11.5-14.0); SEGMENTED NEUTROPHILS % (AUTO) 79.7 % (42-78); TOTAL CELLS COUNTED % (AUTO) 100 %; WHITE BLOOD COUNT 11.6 10^3/uL (4.0-10.5)
[2020-03-17 06:36] LABS: HEMOGLOBIN 11.5 g/dL (13.5-17.0)
[2020-03-17] MEDS: OXYCODONE HCL IR 5 MG TABLET PO SCH ×5 (06:56→17:59)
[2020-03-17] MEDS: VANCOMYCIN HCL 1,250 MG in DEXTROSE 5%-WATER 250 ML IV SCH ×2 (07:55→21:16)
[2020-03-17] MEDS: SUCRALFATE 1 GM TABLET PO SCH ×4 (07:55→21:16)
[2020-03-17] MEDS: ENOXAPARIN SODIUM INJ 40 MG/0.4 ML DISP.SYRIN SUBCUT SCH (09:09)
[2020-03-17] MEDS: PANTOPRAZOLE SODIUM 40 MG TABLET.DR PO SCH ×2 (09:30→17:59)
[2020-03-17] MEDS: EZETIMIBE 10 MG TABLET PO SCH (09:30)
[2020-03-17] MEDS: GABAPENTIN 300 MG CAPSULE PO SCH ×4 (09:31→21:17)
[2020-03-17] MEDS: SITAGLIPTIN PHOSPHATE 50 MG TABLET PO SCH (09:31)
[2020-03-17] MEDS: MAGNESIUM OXIDE 400 MG TABLET PO SCH (09:31)
[2020-03-17 09:51] LABS: BLOOD UREA NITROGEN 15 mg/dL (7-20); CALCIUM 7.7 mg/dL (8.4-10.2); GLUCOSE 232 mg/dL (75-110); POTASSIUM 3.2 mmol/L (3.6-5.0)
[2020-03-17 09:56] LABS: CARBON DIOXIDE 31 mmol/L (22-30); CHLORIDE 98 mmol/L (98-107)
[2020-03-17 10:00] LABS: ANION GAP 4 (5-19)
[2020-03-17] MEDS ORDERED: POTASSIUM CHLORIDE 10 MEQ TABLET.ER PO ONE (13:30)
--- NOTE | 2020-03-17 14:18 | PDOC PROGRESS REPORT ---
Subjective Progress Note for:: 03/17/20 Subjective:: Patient seen by the bedside, he complains of difficulty swallowing, he underwent EGD found to have severe ulceration of the distal esophagus. He was admitted for cellulitis he has areas of dermatitis on the elbow low suspicion for psoriasis, he will be treated with clobetasol ointment. Reason For Visit: CELLULITIS OF RIGHT ARM,T2DM,FALLS,OPORD DEPEDENCE Physical Exam Vital Signs: Temp Pulse Resp BP Pulse Ox 97.5 F 61 16 107/49 L 92 03/17/20 12:00 03/17/20 12:00 03/17/20 12:00 03/17/20 12:00 03/17/20 12:00 Intake & Output 03/16/20 03/17/20 03/18/20 06:59 06:59 06:59 Intake Total 690 3550 670 Output Total 2675 425 200 -1984 3125 470 Weight 66.8 kg 68.9 kg General appearance: PRESENT: no acute distress Eye exam: PRESENT: PERRLA Respiratory exam: PRESENT: clear to auscultation carmen Cardiovascular exam: PRESENT: +S1, +S2 Results Laboratory Results: 03/17/20 05:53 03/17/20 08:47 03/16/20 03/16/20 03/17/20 07:25 15:30 05:53 WBC 20.6 H 11.6 H RBC 4.86 4.09 L Hgb 13.8 11.5 L D Hct 41.1 34.4 L MCV 85 84 MCH 28.4 28.2 MCHC 33.6 33.6 RDW 14.5 H 14.2 H Plt Count 211 194 Seg Neutrophils % Not Reportable 79.7 H Sodium 134.9 L Potassium 2.8 L* Chloride 94 L Carbon Dioxide 32 H Anion Gap 9 BUN 19 Creatinine 0.78 Est GFR ( Amer) > 60 Glucose 229 H Calcium 8.2 L Total Bilirubin 0.7 AST 14 L Alkaline Phosphatase 68 Total Protein 5.7 L Albumin 2.9 L 03/17/20 08:47 WBC RBC Hgb Hct MCV MCH MCHC RDW Plt Count Seg Neutrophils % Sodium 133.3 L Potassium 3.2 L Chloride 98 Carbon Dioxide 31 H Anion Gap 4 L BUN 15 Creatinine 0.70 Est GFR ( Amer) > 60 Glucose 232 H Calcium 7.7 L Total Bilirubin AST Alkaline Phosphatase Total Protein Albumin 07/16/20 21:25 Clean Catch Midstream Urine Culture - Final Mixed Urogenital Daphnie Impressions: Chest X-Ray 03/14/20 00:00 IMPRESSION: NO ACUTE RADIOGRAPHIC FINDING IN THE CHEST. Forearm X-Ray 03/14/20 00:00 IMPRESSION: NEGATIVE STUDY OF THE RIGHT FOREARM. NO RADIOGRAPHIC EVIDENCE OF ACUTE INJURY. KUB X-Ray 03/15/20 13:16 IMPRESSION: Limited view the abdomen for NG tube placement as described. Assessment & Plan - Diagnosis (1) Cellulitis of left upper extremity Is this a current diagnosis for this admission?: Yes Plan: Continue antibiotic (2) T2DM (type 2 diabetes mellitus) Qualifiers: Diabetes mellitus mcfp insulin use: without mcfp use Diabetes mellitus complication status: with neurologic complications Diabetes mellitus complication detail: with polyneuropathy Qualified Code(s): E11.42 - Type 2 diabetes mellitus with diabetic polyneuropathy Is this a current diagnosis for this admission?: Yes (3) COPD (chronic obstructive pulmonary disease) Qualifiers: COPD type: unspecified COPD Qualified Code(s): J44.9 - Chronic obstructive pulmonary disease, unspecified Is this a current diagnosis for this admission?: Yes (4) Upper GI bleed Is this a current diagnosis for this admission?: Yes (5) Esophageal ulceration Qualifiers: Esophageal ulcer bleeding: with bleeding Qualified Code(s): K22.11 - Ulcer of esophagus with bleeding Is this a current diagnosis for this admission?: Yes (6) Dermatitis Is this a current diagnosis for this admission?: Yes Plan: He has dermatitis on further detailed inspection, it looks like psoriasis, it involves the extensor surface of the elbow, he will be treated with topical clobetasol ointment - Time Time Spent with patient: 25-34 minutes Level of Care: IMCU Medications reviewed and adjusted accordingly: Yes Anticipated discharge: SNF Within: Other
[2020-03-17] MEDS: RINGERS SOLUTION,LACTATED 1,000 ML IV PRN (15:55)
[2020-03-17] MEDS: CLOBETASOL PROPIONATE 0.05% CREAM 15 GM TP SCH (18:00)
[2020-03-17 20:22] LABS: C DIFFICILE GDH POSITIVE (NEGATIVE)
[2020-03-17] MEDS: ATORVASTATIN CALCIUM 40 MG TABLET PO SCH (21:17)
[2020-03-18] MEDS ORDERED: DIPHENHYDRAMINE HCL 50 MG/ML VIAL ONE (01:04)
[2020-03-18] MEDS: INSULIN LISPRO 100 UNIT/ML 3 ML VIAL SUBCUT SCH ×5 (01:09→21:54)
[2020-03-18] MEDS ORDERED: DIPHENHYDRAMINE HCL 50 MG/ML VIAL IV ONE (01:15)
[2020-03-18] MEDS: PIPERACILLIN SODIUM/TAZOBACTAM 3.375 GM in NORMAL SALINE 100 ML IV SCH ×3 (05:16→22:43)
[2020-03-18] MEDS: OXYCODONE HCL IR 5 MG TABLET PO SCH ×5 (06:22→20:44)
[2020-03-18] MEDS: VANCOMYCIN HCL 1,250 MG in DEXTROSE 5%-WATER 250 ML IV SCH ×2 (08:40→20:44)
[2020-03-18] MEDS: SUCRALFATE 1 GM TABLET PO SCH ×4 (08:40→21:53)
[2020-03-18 08:46] LABS: VANCOMYCIN,TROUGH 15.8 ug/mL (5.0-20.0)
[2020-03-18] MEDS: ENOXAPARIN SODIUM INJ 40 MG/0.4 ML DISP.SYRIN SUBCUT SCH (10:21)
[2020-03-18] MEDS: MAGNESIUM OXIDE 400 MG TABLET PO SCH (10:22)
[2020-03-18] MEDS: PANTOPRAZOLE SODIUM 40 MG TABLET.DR PO SCH ×2 (10:22→17:27)
[2020-03-18] MEDS: EZETIMIBE 10 MG TABLET PO SCH (10:22)
[2020-03-18] MEDS: GABAPENTIN 300 MG CAPSULE PO SCH ×4 (10:22→21:54)
[2020-03-18] MEDS: SITAGLIPTIN PHOSPHATE 50 MG TABLET PO SCH (10:22)
[2020-03-18] MEDS: CLOBETASOL PROPIONATE 0.05% CREAM 15 GM TP SCH (10:23)
[2020-03-18 10:55] LABS: ABSOLUTE BASOPHILS # (AUTO) 0.1 10^3/uL (0.0-0.2); ABSOLUTE EOSINOPHILS # (AUTO) 0.1 10^3/uL (0.0-0.6); ABSOLUTE LYMPHOCYTES (AUTO) 1.1 10^3/uL (0.5-4.7); ABSOLUTE MONOCYTES (AUTO) 0.7 10^3/uL (0.1-1.4); ABSOLUTE NEUT (AUTO) 9.9 10^3/uL (1.7-8.2); BASOPHILS % (AUTO) 0.6 % (0-2); EOSINOPHILS % (AUTO) 0.8 % (0-6); HEMATOCRIT 35.1 % (37.9-51.0); HEMOGLOBIN 11.7 g/dL (13.5-17.0); LYMPHOCYTES % (AUTO) 9.2 % (13-45); MEAN CORPUSCULAR HEMOGLOBIN 28.1 pg (27.0-33.4); MEAN CORPUSCULAR HGB CONC 33.3 g/dL (32.0-36.0); MEAN CORPUSCULAR VOLUME 84 fl (80-97); MONOCYTES % (AUTO) 5.9 % (3-13); PLATELET COUNT 183 10^3/uL (150-450); RED BLOOD COUNT 4.15 10^6/uL (4.35-5.55); RED CELL DISTRIBUTION WIDTH 14.4 % (11.5-14.0); SEGMENTED NEUTROPHILS % (AUTO) 83.5 % (42-78); TOTAL CELLS COUNTED % (AUTO) 100 %; WHITE BLOOD COUNT 11.9 10^3/uL (4.0-10.5)
[2020-03-18 11:19] LABS: ALBUMIN 2.4 g/dL (3.5-5.0); ALKALINE PHOSPHATASE 55 U/L (38-126); ANION GAP 5 (5-19); ASPARTATE AMINO TRANSFERASE 15 U/L (17-59); BILIRUBIN,TOTAL 0.5 mg/dL (0.2-1.3); BLOOD UREA NITROGEN 11 mg/dL (7-20); CALCIUM 7.8 mg/dL (8.4-10.2); CARBON DIOXIDE 28 mmol/L (22-30); CHLORIDE 102 mmol/L (98-107); GLUCOSE 215 mg/dL (75-110)
--- NOTE | 2020-03-18 13:08 | PDOC PROGRESS REPORT ---
Subjective Progress Note for:: 03/18/20 Subjective:: Patient seen at the bedside, he complained of difficulty swallowing, this is expected considering the fact that he has extensive ulceration of the distal esophagus Reason For Visit: CELLULITIS OF RIGHT ARM,T2DM,FALLS,OPORD DEPEDENCE Physical Exam Vital Signs: Temp Pulse Resp BP Pulse Ox 99.9 F 78 14 144/72 H 95 03/18/20 11:44 03/18/20 11:44 03/18/20 11:44 03/18/20 11:44 03/18/20 11:44 Intake & Output 03/17/20 03/18/20 03/19/20 06:59 06:59 06:59 Intake Total 4550 1960 700 Output Total 462 512 4920 Balance 4125 1135 -350 Weight 68.9 kg 71.4 kg General appearance: PRESENT: no acute distress Eye exam: PRESENT: PERRLA Respiratory exam: PRESENT: clear to auscultation carmen Cardiovascular exam: PRESENT: +S1, +S2 GI/Abdominal exam: PRESENT: soft Neurological exam: PRESENT: alert Results Laboratory Results: 03/18/20 07:35 03/18/20 07:35 03/17/20 03/17/20 03/18/20 16:27 16:27 07:35 WBC RBC Hgb Hct MCV MCH MCHC RDW Plt Count Seg Neutrophils % Sodium Potassium Chloride Carbon Dioxide Anion Gap BUN Creatinine 0.71 Est GFR ( Amer) > 60 Glucose Calcium Total Bilirubin AST Alkaline Phosphatase Total Protein Albumin Stool for White Cells NO WBCs SEEN Stl C.difficile Tox PCR NEGATIVE 03/18/20 03/18/20 07:35 07:35 WBC 11.9 H RBC 4.15 L Hgb 11.7 L Hct 35.1 L MCV 84 MCH 28.1 MCHC 33.3 RDW 14.4 H Plt Count 183 Seg Neutrophils % 83.5 H Sodium 134.5 L Potassium 4.0 Chloride 102 Carbon Dioxide 28 Anion Gap 5 BUN 11 Creatinine 0.71 Est GFR ( Amer) > 60 Glucose 215 H Calcium 7.8 L Total Bilirubin 0.5 AST 15 L Alkaline Phosphatase 55 Total Protein 5.0 L Albumin 2.4 L Stool for White Cells Stl C.difficile Tox PCR 03/17/20 16:27 Stool - Stool - Final Impressions: Chest X-Ray 03/14/20 00:00 IMPRESSION: NO ACUTE RADIOGRAPHIC FINDING IN THE CHEST. Forearm X-Ray 03/14/20 00:00 IMPRESSION: NEGATIVE STUDY OF THE RIGHT FOREARM. NO RADIOGRAPHIC EVIDENCE OF ACUTE INJURY. KUB X-Ray 03/15/20 13:16 IMPRESSION: Limited view the abdomen for NG tube placement as described. Assessment & Plan - Diagnosis (1) Cellulitis of left upper extremity Is this a current diagnosis for this admission?: Yes Plan: Continue antibiotic (2) T2DM (type 2 diabetes mellitus) Qualifiers: Diabetes mellitus ferry terminal supervisor insulin use: without ferry terminal supervisor use Diabetes mellitus complication status: with neurologic complications Diabetes mellitus complication detail: with polyneuropathy Qualified Code(s): E11.42 - Type 2 diabetes mellitus with diabetic polyneuropathy Is this a current diagnosis for this admission?: Yes (3) COPD (chronic obstructive pulmonary disease) Qualifiers: COPD type: unspecified COPD Qualified Code(s): J44.9 - Chronic obstructive pulmonary disease, unspecified Is this a current diagnosis for this admission?: Yes (4) Upper GI bleed Is this a current diagnosis for this admission?: Yes Plan: Continue clobetasol, some improvement of the skin rash (5) Esophageal ulceration Qualifiers: Esophageal ulcer bleeding: with bleeding Qualified Code(s): K22.11 - Ulcer of esophagus with bleeding Is this a current diagnosis for this admission?: Yes (6) Dermatitis Is this a current diagnosis for this admission?: Yes - Time Time Spent with patient: 35 or more minutes Level of Care: IMCU Medications reviewed and adjusted accordingly: Yes Anticipated discharge: SNF Within: Other
[2020-03-18] MEDS: RINGERS SOLUTION,LACTATED 1,000 ML IV PRN (17:29)
[2020-03-18] MEDS: ATORVASTATIN CALCIUM 40 MG TABLET PO SCH (21:53)
[2020-03-18] MEDS: DIPHENHYDRAMINE HCL 50 MG CAPSULE PO PRN (22:43)
[2020-03-19] MEDS: RINGERS SOLUTION,LACTATED 1,000 ML IV PRN ×2 (05:25→18:00)
[2020-03-19] MEDS: PIPERACILLIN SODIUM/TAZOBACTAM 3.375 GM in NORMAL SALINE 100 ML IV SCH ×3 (05:25→21:39)
[2020-03-19 06:13] LABS: ABSOLUTE BASOPHILS # (AUTO) 0.1 10^3/uL (0.0-0.2); ABSOLUTE EOSINOPHILS # (AUTO) 0.2 10^3/uL (0.0-0.6); ABSOLUTE LYMPHOCYTES (AUTO) 1.5 10^3/uL (0.5-4.7); ABSOLUTE MONOCYTES (AUTO) 0.7 10^3/uL (0.1-1.4); ABSOLUTE NEUT (AUTO) 6.9 10^3/uL (1.7-8.2); BASOPHILS % (AUTO) 0.6 % (0-2); EOSINOPHILS % (AUTO) 2.6 % (0-6); HEMATOCRIT 36.4 % (37.9-51.0); HEMOGLOBIN 12.3 g/dL (13.5-17.0); MEAN CORPUSCULAR HEMOGLOBIN 28.4 pg (27.0-33.4); MEAN CORPUSCULAR HGB CONC 33.9 g/dL (32.0-36.0); MEAN CORPUSCULAR VOLUME 84 fl (80-97); MONOCYTES % (AUTO) 7.6 % (3-13); PLATELET COUNT 184 10^3/uL (150-450); RED BLOOD COUNT 4.34 10^6/uL (4.35-5.55); RED CELL DISTRIBUTION WIDTH 14.3 % (11.5-14.0); SEGMENTED NEUTROPHILS % (AUTO) 73.2 % (42-78); TOTAL CELLS COUNTED % (AUTO) 100 %; WHITE BLOOD COUNT 9.5 10^3/uL (4.0-10.5)
[2020-03-19 06:38] LABS: ALBUMIN 2.7 g/dL (3.5-5.0); ALKALINE PHOSPHATASE 53 U/L (38-126); ASPARTATE AMINO TRANSFERASE 16 U/L (17-59); BILIRUBIN,TOTAL 0.4 mg/dL (0.2-1.3); BLOOD UREA NITROGEN 9 mg/dL (7-20); CALCIUM 8.1 mg/dL (8.4-10.2); GLUCOSE 168 mg/dL (75-110); POTASSIUM 3.7 mmol/L (3.6-5.0); TOTAL PROTEIN 5.6 g/dL (6.3-8.2)
[2020-03-19 06:44] LABS: CARBON DIOXIDE 29 mmol/L (22-30); CHLORIDE 103 mmol/L (98-107)
[2020-03-19 06:49] LABS: ANION GAP 2 (5-19)
[2020-03-19] MEDS: INSULIN LISPRO 100 UNIT/ML 3 ML VIAL SUBCUT SCH ×4 (08:01→21:39)
[2020-03-19] MEDS: OXYCODONE HCL IR 5 MG TABLET PO SCH ×5 (08:01→20:13)
[2020-03-19] MEDS: SUCRALFATE 1 GM TABLET PO SCH ×4 (08:01→21:40)
[2020-03-19] MEDS: VANCOMYCIN HCL 1,250 MG in DEXTROSE 5%-WATER 250 ML IV SCH ×2 (08:02→20:13)
[2020-03-19] MEDS: ENOXAPARIN SODIUM INJ 40 MG/0.4 ML DISP.SYRIN SUBCUT SCH (09:57)
[2020-03-19] MEDS: GABAPENTIN 300 MG CAPSULE PO SCH ×4 (10:07→21:40)
[2020-03-19] MEDS: SITAGLIPTIN PHOSPHATE 50 MG TABLET PO SCH (10:07)
[2020-03-19] MEDS: CLOBETASOL PROPIONATE 0.05% CREAM 15 GM TP SCH (10:25)
[2020-03-19] MEDS: PANTOPRAZOLE SODIUM 40 MG TABLET.DR PO SCH ×2 (10:25→17:02)
[2020-03-19] MEDS: MAGNESIUM OXIDE 400 MG TABLET PO SCH (10:25)
[2020-03-19] MEDS: EZETIMIBE 10 MG TABLET PO SCH (10:26)
--- NOTE | 2020-03-19 15:29 | PDOC PROGRESS REPORT ---
Subjective Progress Note for:: 03/19/20 Subjective:: Patient seen by the bedside, he is looking better, it seems that he has psoriasis of the skin, it is responding to clobetasol ointment. The cellulitis is also responding to IV antibiotic, the white blood cell is normalized there is less redness overall patient feels better. He will need physical therapy and rehabilitation at a skilled facility Reason For Visit: CELLULITIS OF RIGHT ARM,T2DM,FALLS,OPORD DEPEDENCE Physical Exam Vital Signs: Temp Pulse Resp BP Pulse Ox 98.7 F 75 16 132/65 H 91 L 03/19/20 11:44 03/19/20 14:00 03/19/20 11:44 03/19/20 11:44 03/19/20 11:44 Intake & Output 03/18/20 03/19/20 03/20/20 06:59 06:59 06:59 Intake Total 2960 3370 558 Output Total 825 3575 1275 Balance 8322 -054 -187 Weight 71.4 kg 71.4 kg 71.4 kg General appearance: PRESENT: no acute distress Eye exam: PRESENT: PERRLA Respiratory exam: PRESENT: clear to auscultation carmen Cardiovascular exam: PRESENT: +S1, +S2 GI/Abdominal exam: PRESENT: soft Neurological exam: PRESENT: alert, CN II-XII grossly intact Skin exam: PRESENT: erythema - affecting the knee,elbow consistent with Psoriasis Results Laboratory Results: 03/19/20 05:43 03/19/20 05:43 03/19/20 03/19/20 05:43 05:43 WBC 9.5 RBC 4.34 L Hgb 12.3 L Hct 36.4 L MCV 84 MCH 28.4 MCHC 33.9 RDW 14.3 H Plt Count 184 Seg Neutrophils % 73.2 Sodium 134.4 L Potassium 3.7 Chloride 103 Carbon Dioxide 29 Anion Gap 2 L BUN 9 Creatinine 0.69 Est GFR ( Amer) > 60 Glucose 168 H Calcium 8.1 L Total Bilirubin 0.4 AST 16 L Alkaline Phosphatase 53 Total Protein 5.6 L Albumin 2.7 L 03/17/20 16:27 Stool - Stool - Final Impressions: Chest X-Ray 03/14/20 00:00 IMPRESSION: NO ACUTE RADIOGRAPHIC FINDING IN THE CHEST. Forearm X-Ray 03/14/20 00:00 IMPRESSION: NEGATIVE STUDY OF THE RIGHT FOREARM. NO RADIOGRAPHIC EVIDENCE OF ACUTE INJURY. KUB X-Ray 03/15/20 13:16 IMPRESSION: Limited view the abdomen for NG tube placement as described. Assessment & Plan - Diagnosis (1) Cellulitis of left upper extremity Is this a current diagnosis for this admission?: Yes Plan: Continue IV antibiotic (2) T2DM (type 2 diabetes mellitus) Qualifiers: Diabetes mellitus usp insulin use: without washroom operator use Diabetes mellitus complication status: with neurologic complications Diabetes mellitus complication detail: with polyneuropathy Qualified Code(s): E11.42 - Type 2 diabetes mellitus with diabetic polyneuropathy Is this a current diagnosis for this admission?: Yes (3) COPD (chronic obstructive pulmonary disease) Qualifiers: COPD type: unspecified COPD Qualified Code(s): J44.9 - Chronic obstructive pulmonary disease, unspecified Is this a current diagnosis for this admission?: Yes (4) Upper GI bleed Is this a current diagnosis for this admission?: Yes (5) Esophageal ulceration Qualifiers: Esophageal ulcer bleeding: with bleeding Qualified Code(s): K22.11 - Ulcer of esophagus with bleeding Is this a current diagnosis for this admission?: Yes Plan: Continue medication (6) Dermatitis Is this a current diagnosis for this admission?: Yes (7) Psoriasis Is this a current diagnosis for this admission?: Yes Plan: Continue clobetasol ointment - Time Time Spent with patient: 25-34 minutes Level of Care: IMCU Anticipated discharge: SNF Within: within 72 hours
[2020-03-19] MEDS: DIPHENHYDRAMINE HCL 50 MG CAPSULE PO PRN (17:02)
[2020-03-19] MEDS: ATORVASTATIN CALCIUM 40 MG TABLET PO SCH (21:40)
[2020-03-20] MEDS: DIPHENHYDRAMINE HCL 50 MG CAPSULE PO PRN (01:03)
[2020-03-20] MEDS: PIPERACILLIN SODIUM/TAZOBACTAM 3.375 GM in NORMAL SALINE 100 ML IV SCH ×3 (05:52→23:44)
[2020-03-20] MEDS: SUCRALFATE 1 GM TABLET PO SCH ×4 (07:57→21:51)
[2020-03-20] MEDS: OXYCODONE HCL IR 5 MG TABLET PO SCH ×5 (07:57→21:51)
[2020-03-20] MEDS: RINGERS SOLUTION,LACTATED 1,000 ML IV PRN ×2 (07:58→21:50)
[2020-03-20] MEDS: INSULIN LISPRO 100 UNIT/ML 3 ML VIAL SUBCUT SCH ×4 (07:58→21:52)
[2020-03-20] MEDS: VANCOMYCIN HCL 1,250 MG in DEXTROSE 5%-WATER 250 ML IV SCH ×2 (08:14→21:51)
[2020-03-20] MEDS: ENOXAPARIN SODIUM INJ 40 MG/0.4 ML DISP.SYRIN SUBCUT SCH (09:13)
[2020-03-20] MEDS: EZETIMIBE 10 MG TABLET PO SCH (09:52)
[2020-03-20] MEDS: CLOBETASOL PROPIONATE 0.05% CREAM 15 GM TP SCH (09:52)
[2020-03-20] MEDS: SITAGLIPTIN PHOSPHATE 50 MG TABLET PO SCH (09:52)
[2020-03-20] MEDS: MAGNESIUM OXIDE 400 MG TABLET PO SCH (09:52)
[2020-03-20] MEDS: GABAPENTIN 300 MG CAPSULE PO SCH ×4 (09:52→21:51)
[2020-03-20] MEDS: PANTOPRAZOLE SODIUM 40 MG TABLET.DR PO SCH ×2 (09:52→17:27)
--- NOTE | 2020-03-20 14:27 | PDOC PROGRESS REPORT ---
Subjective Progress Note for:: 03/20/20 Subjective:: Patient seen by the bedside, he said he feels malaise, but on inspection of the skin, there is near resolution of the cellulitis, the psoriatic rash is improving with the ointment clobetasol. Physical therapy is recommended, patient deconditioned will plan for care home in a day or 2 Reason For Visit: CELLULITIS OF RIGHT ARM,T2DM,FALLS,OPORD DEPEDENCE Physical Exam Vital Signs: Temp Pulse Resp BP Pulse Ox 98.2 F 66 17 110/57 L 92 03/20/20 11:13 03/20/20 11:13 03/20/20 11:13 03/20/20 11:13 03/20/20 11:13 Intake & Output 03/19/20 03/20/20 03/21/20 06:59 06:59 06:59 Intake Total 3370 3834 657 Output Total 3575 3250 Balance -205 584 657 Weight 71.4 kg 70.7 kg General appearance: PRESENT: no acute distress Eye exam: PRESENT: PERRLA Respiratory exam: PRESENT: clear to auscultation carmen Cardiovascular exam: PRESENT: +S1, +S2 GI/Abdominal exam: PRESENT: soft Neurological exam: PRESENT: alert Results Laboratory Results: 03/19/20 05:43 03/19/20 05:43 03/17/20 16:27 Stool - Stool - Final 03/17/20 16:27 Stool - Stool Stool Culture - Final NO SALMONELLA, SHIGELLA, CAMPYLOBACTER, OR E.COLI 0157 RECOVERED. NEGATIVE FOR SHIGA TOXINS 1&2. Impressions: Chest X-Ray 03/14/20 00:00 IMPRESSION: NO ACUTE RADIOGRAPHIC FINDING IN THE CHEST. Forearm X-Ray 03/14/20 00:00 IMPRESSION: NEGATIVE STUDY OF THE RIGHT FOREARM. NO RADIOGRAPHIC EVIDENCE OF ACUTE INJURY. KUB X-Ray 03/15/20 13:16 IMPRESSION: Limited view the abdomen for NG tube placement as described. Assessment & Plan - Diagnosis (1) Cellulitis of left upper extremity Is this a current diagnosis for this admission?: Yes Plan: Improved/ resolved (2) T2DM (type 2 diabetes mellitus) Qualifiers: Diabetes mellitus petroleum terminal plant operator insulin use: without petroleum terminal plant operator use Diabetes mellitus complication status: with neurologic complications Diabetes mellitus complication detail: with polyneuropathy Qualified Code(s): E11.42 - Type 2 diabetes mellitus with diabetic polyneuropathy Is this a current diagnosis for this admission?: Yes (3) COPD (chronic obstructive pulmonary disease) Qualifiers: COPD type: unspecified COPD Qualified Code(s): J44.9 - Chronic obstructive pulmonary disease, unspecified Is this a current diagnosis for this admission?: Yes (4) Upper GI bleed Is this a current diagnosis for this admission?: Yes (5) Esophageal ulceration Qualifiers: Esophageal ulcer bleeding: with bleeding Qualified Code(s): K22.11 - Ulcer of esophagus with bleeding Is this a current diagnosis for this admission?: Yes Plan: Continue medication (6) Dermatitis Is this a current diagnosis for this admission?: Yes (7) Psoriasis Is this a current diagnosis for this admission?: Yes Plan: Continue clobetasol ointment - Time Time Spent with patient: 25-34 minutes Level of Care: IMCU Anticipated discharge: SNF Within: within 24 hours
[2020-03-20] MEDS: ATORVASTATIN CALCIUM 40 MG TABLET PO SCH (21:51)
[2020-03-21] MEDS: DIPHENHYDRAMINE HCL 50 MG CAPSULE PO PRN (00:50)
[2020-03-21] MEDS: PIPERACILLIN SODIUM/TAZOBACTAM 3.375 GM in NORMAL SALINE 100 ML IV SCH ×2 (05:47→13:55)
[2020-03-21] MEDS: OXYCODONE HCL IR 5 MG TABLET PO SCH ×5 (07:37→21:29)
[2020-03-21] MEDS: VANCOMYCIN HCL 1,250 MG in DEXTROSE 5%-WATER 250 ML IV SCH ×2 (07:38→21:00)
[2020-03-21] MEDS: INSULIN LISPRO 100 UNIT/ML 3 ML VIAL SUBCUT SCH ×4 (07:38→21:31)
[2020-03-21] MEDS: SUCRALFATE 1 GM TABLET PO SCH ×4 (07:38→21:30)
[2020-03-21] MEDS: SITAGLIPTIN PHOSPHATE 50 MG TABLET PO SCH (09:26)
[2020-03-21] MEDS: GABAPENTIN 300 MG CAPSULE PO SCH ×4 (09:26→21:32)
[2020-03-21] MEDS: MAGNESIUM OXIDE 400 MG TABLET PO SCH (09:26)
[2020-03-21] MEDS: PANTOPRAZOLE SODIUM 40 MG TABLET.DR PO SCH ×2 (09:26→17:05)
[2020-03-21] MEDS: EZETIMIBE 10 MG TABLET PO SCH (09:26)
[2020-03-21] MEDS: ENOXAPARIN SODIUM INJ 40 MG/0.4 ML DISP.SYRIN SUBCUT SCH (09:27)
[2020-03-21] MEDS: CLOBETASOL PROPIONATE 0.05% CREAM 15 GM TP SCH (09:29)
[2020-03-21] MEDS: RINGERS SOLUTION,LACTATED 1,000 ML IV PRN (11:53)
[2020-03-21 13:13] LABS: ABSOLUTE BASOPHILS # (AUTO) 0.1 10^3/uL (0.0-0.2); ABSOLUTE EOSINOPHILS # (AUTO) 0.4 10^3/uL (0.0-0.6); ABSOLUTE LYMPHOCYTES (AUTO) 1.1 10^3/uL (0.5-4.7); ABSOLUTE MONOCYTES (AUTO) 0.8 10^3/uL (0.1-1.4); ABSOLUTE NEUT (AUTO) 12.1 10^3/uL (1.7-8.2); BASOPHILS % (AUTO) 0.5 % (0-2); HEMATOCRIT 35.1 % (37.9-51.0); HEMOGLOBIN 11.9 g/dL (13.5-17.0); LYMPHOCYTES % (AUTO) 7.4 % (13-45); MEAN CORPUSCULAR HEMOGLOBIN 28.2 pg (27.0-33.4); MEAN CORPUSCULAR HGB CONC 33.9 g/dL (32.0-36.0); MEAN CORPUSCULAR VOLUME 83 fl (80-97); MONOCYTES % (AUTO) 5.8 % (3-13); PLATELET COUNT 207 10^3/uL (150-450); RED BLOOD COUNT 4.22 10^6/uL (4.35-5.55); RED CELL DISTRIBUTION WIDTH 14.4 % (11.5-14.0); SEGMENTED NEUTROPHILS % (AUTO) 83.3 % (42-78); TOTAL CELLS COUNTED % (AUTO) 100 %; WHITE BLOOD COUNT 14.6 10^3/uL (4.0-10.5)
[2020-03-21 13:30] LABS: ALBUMIN 2.5 g/dL (3.5-5.0); ALKALINE PHOSPHATASE 58 U/L (38-126); ANION GAP 5 (5-19); ASPARTATE AMINO TRANSFERASE 15 U/L (17-59); BILIRUBIN,TOTAL 0.3 mg/dL (0.2-1.3); BLOOD UREA NITROGEN 15 mg/dL (7-20); CARBON DIOXIDE 27 mmol/L (22-30); CHLORIDE 101 mmol/L (98-107); GLUCOSE 283 mg/dL (75-110); POTASSIUM 4.3 mmol/L (3.6-5.0); TOTAL PROTEIN 5.2 g/dL (6.3-8.2)
--- NOTE | 2020-03-21 19:40 | PDOC PROGRESS REPORT ---
Subjective Progress Note for:: 03/21/20 Subjective:: Patient seen by the bedside, he will be discharged to [facility] tomorrow for rehabilitation Reason For Visit: CELLULITIS OF RIGHT ARM,T2DM,FALLS,OPORD DEPEDENCE Physical Exam Vital Signs: Temp Pulse Resp BP Pulse Ox 98.7 F 71 19 125/53 L 93 03/21/20 15:34 03/21/20 15:34 03/21/20 15:34 03/21/20 15:34 03/21/20 15:34 Intake & Output 03/20/20 03/21/20 03/22/20 06:59 06:59 06:59 Intake Total 3834 3120 3210 Output Total 3250 3725 450 Balance 584 -605 2760 Weight 70.7 kg 71.6 kg General appearance: PRESENT: no acute distress Respiratory exam: PRESENT: clear to auscultation carmen Cardiovascular exam: PRESENT: +S1, +S2 GI/Abdominal exam: PRESENT: soft Neurological exam: PRESENT: alert Results Laboratory Results: 03/21/20 13:00 03/21/20 13:00 03/21/20 03/21/20 13:00 13:00 WBC 14.6 H RBC 4.22 L Hgb 11.9 L Hct 35.1 L MCV 83 MCH 28.2 MCHC 33.9 RDW 14.4 H Plt Count 207 Seg Neutrophils % 83.3 H Sodium 133.2 L Potassium 4.3 Chloride 101 Carbon Dioxide 27 Anion Gap 5 BUN 15 Creatinine 1.24 Est GFR ( Amer) > 60 Glucose 283 H Calcium 8.0 L Total Bilirubin 0.3 AST 15 L Alkaline Phosphatase 58 Total Protein 5.2 L Albumin 2.5 L Impressions: Chest X-Ray 03/14/20 00:00 IMPRESSION: NO ACUTE RADIOGRAPHIC FINDING IN THE CHEST. Forearm X-Ray 03/14/20 00:00 IMPRESSION: NEGATIVE STUDY OF THE RIGHT FOREARM. NO RADIOGRAPHIC EVIDENCE OF ACUTE INJURY. KUB X-Ray 03/15/20 13:16 IMPRESSION: Limited view the abdomen for NG tube placement as described. Assessment & Plan - Diagnosis (1) Cellulitis of left upper extremity Is this a current diagnosis for this admission?: Yes (2) T2DM (type 2 diabetes mellitus) Qualifiers: Diabetes mellitus alf insulin use: without intermediate designer use Diabetes mellitus complication status: with neurologic complications Diabetes mellitus complication detail: with polyneuropathy Qualified Code(s): E11.42 - Type 2 diabetes mellitus with diabetic polyneuropathy Is this a current diagnosis for this admission?: Yes (3) COPD (chronic obstructive pulmonary disease) Qualifiers: COPD type: unspecified COPD Qualified Code(s): J44.9 - Chronic obstructive pulmonary disease, unspecified Is this a current diagnosis for this admission?: Yes (4) Upper GI bleed Is this a current diagnosis for this admission?: Yes (5) Esophageal ulceration Qualifiers: Esophageal ulcer bleeding: with bleeding Qualified Code(s): K22.11 - Ulcer of esophagus with bleeding Is this a current diagnosis for this admission?: Yes Plan: Continue medication (6) Dermatitis Is this a current diagnosis for this admission?: Yes (7) Psoriasis Is this a current diagnosis for this admission?: Yes - Time Time Spent with patient: Less than 15 minutes Level of Care: IMCU Medications reviewed and adjusted accordingly: Yes Anticipated discharge: SNF Within: within 24 hours
--- NOTE | 2020-03-21 19:47 | PDOC TRANSFER SUMMARY ---
Impression - Admit/DC Date/PCP Admission Date/Primary Care Provider: 03/14/20 16:29 RAUL VEGA MD Discharge Date: 03/22/20 - Discharge Diagnosis (1) Cellulitis of left upper extremity Is this a current diagnosis for this admission?: Yes (2) T2DM (type 2 diabetes mellitus) Is this a current diagnosis for this admission?: Yes (3) COPD (chronic obstructive pulmonary disease) Is this a current diagnosis for this admission?: Yes (4) Upper GI bleed Is this a current diagnosis for this admission?: Yes (5) Esophageal ulceration Is this a current diagnosis for this admission?: Yes (6) Dermatitis Is this a current diagnosis for this admission?: Yes (7) Psoriasis Is this a current diagnosis for this admission?: Yes - Additional Information Resuscitation Status: Full Code Discharge Diet: Diabetic Referrals: RAUL VEGA MD [Primary Care Provider] - 03/29/20 10:00 am Prescriptions: Exenatide Microspheres [Bydureon Bcise] 2 mg SQ Q7D #1000 auto.injct Dapagliflozin Propanediol [Farxiga] 10 mg PO DAILY #200 tablet Home Medications: Gabapentin [Neurontin] 600 mg PO QID 04/17/13 Rosuvastatin Calcium [Crestor 20 mg Tablet] 20 mg PO DAILY 04/17/13 Aspirin [Ecotrin 81 mg EC Tablet] 81 mg PO DAILY 03/14/20 Ezetimibe 10 mg PO DAILY 03/14/20 Insulin Aspart Prot/Insuln Asp [Novolog Mix 70-30 Flexpen] 26 unit SUBCUT MEALS 03/14/20 Magnesium Oxide 1,600 mg PO DAILY 03/14/20 Omeprazole 20 mg PO DAILY 03/14/20 Sitagliptin Phosphate [Januvia 50 mg Tablet] 100 mg PO DAILY 03/14/20 Clobetasol Propionate [Temovate 0.05% Cream 15 gm] 1 applic TP DAILY tube 03/21/20 Dapagliflozin Propanediol [Farxiga] 10 mg PO DAILY #200 tablet 03/21/20 Exenatide Microspheres [Bydureon Bcise] 2 mg SQ Q7D #1000 auto.injct 03/21/20 Insulin Lispro [Humalog Insulin (Lispro) 100 unit/mL] 0 - 12 unit SUBCUT ACHS unit 03/21/20 Oxycodone HCl [Oxy-Ir 5 mg Tablet] 15 mg PO Q6 #0 03/21/20 Pantoprazole Sodium [Protonix [address] Tablet] 40 mg PO BID tablet. 03/21/20 Sucralfate [Carafate 1 gm Tablet] 1 gm PO ACHS tablet 03/21/20 History of Present Illiness History of Present Illness: IMLLA HENDERSON is a 79 year old male.He came to the office today as a new patient evaluation, history of repeated fall, history of diabetes mellitus, ongoing tobacco abuse, COPD, he has severe cellulitis of the right upper extremities there are also areas of cellulitis on the left he also have ulcerated lesion on the left leg, because of the severe cellulitis, his unkept state I felt patient best plan of care will be inpatient care, he was admitted directly from the office to the hospital for management.The complete blood count revealed leukocytosis, WBC 16.2 with a left shift Hospital Course Hospital Course: Patient was admitted for the management of cellulitis of the left upper extremities, he was treated empirically with IV antibiotic vancomycin and Zosyn with complete resolution of the cellulitis. Hospital course was complicated with upper GI bleed, he had coffee-ground vomitus he was seen in consultation by GI, he underwent upper endoscopy, he never received blood transfusion, he was found to have extensive ulceration of the distal esophagus. Protonix and sucralfate was recommended. He also have psoriasis this was treated with clobetasol ointment,Diabetes mellitus was not controlled, unfortunately GLP agonist, SGLT 1 inhibitors are nonformulary in this hospital on discharge he was started on Farxiga and Bydureon hopefully this will help achieve better control of his diabetes. The plan [facility] for [facility] strengthening and then discharged home Physical Exam Vital Signs: Temp Pulse Resp BP Pulse Ox 98.7 F 71 19 125/53 L 93 03/21/20 15:34 03/21/20 15:34 03/21/20 15:34 03/21/20 15:34 03/21/20 15:34 Intake & Output 03/20/20 03/21/20 03/22/20 06:59 06:59 06:59 Intake Total 3834 3120 5484 Output Total 3250 3725 1200 Balance 584 -605 4284 Weight 70.7 kg 71.6 kg General appearance: PRESENT: no acute distress Eye exam: PRESENT: PERRLA Respiratory exam: PRESENT: clear to auscultation carmen Cardiovascular exam: PRESENT: +S1, +S2 GI/Abdominal exam: PRESENT: soft Neurological exam: PRESENT: alert, CN II-XII grossly intact Results Laboratory Results: WBC 14.6 10^3/uL (4.0-10.5) H 03/21/20 13:00 RBC 4.22 10^6/uL (4.35-5.55) L 03/21/20 13:00 Hgb 11.9 g/dL (13.5-17.0) L 03/21/20 13:00 Hct 35.1 % (37.9-51.0) L 03/21/20 13:00 MCV 83 fl (80-97) 03/21/20 13:00 MCH 28.2 pg (27.0-33.4) 03/21/20 13:00 MCHC 33.9 g/dL (32.0-36.0) 03/21/20 13:00 RDW 14.4 % (11.5-14.0) H 03/21/20 13:00 Plt Count 207 10^3/uL (150-450) 03/21/20 13:00 Lymph % (Auto) 7.4 % (13-45) L 03/21/20 13:00 [place] % (Auto) 5.8 % (3-13) 03/21/20 13:00 Eos % (Auto) 3.0 % (0-6) 03/21/20 13:00 Baso % (Auto) 0.5 % (0-2) 03/21/20 13:00 Absolute Neuts (auto) 12.1 10^3/uL (1.7-8.2) H 03/21/20 13:00 Absolute Lymphs (auto) 1.1 10^3/uL (0.5-4.7) 03/21/20 13:00 Absolute Monos (auto) 0.8 10^3/uL (0.1-1.4) 03/21/20 13:00 Absolute Eos (auto) 0.4 10^3/uL (0.0-0.6) 03/21/20 13:00 Absolute Basos (auto) 0.1 10^3/uL (0.0-0.2) 03/21/20 13:00 Total Counted 100 03/16/20 07:25 Seg Neutrophils % 83.3 % (42-78) H 03/21/20 13:00 Seg Neuts % (Manual) 91 % (42-78) H 03/16/20 07:25 Band Neutrophils % 4 % (3-5) 03/15/20 23:37 Lymphocytes % (Manual) 3 % (13-45) L 03/16/20 07:25 Atypical Lymphs % 1 % (0) 03/15/20 14:30 Monocytes % (Manual) 6 % (3-13) 03/16/20 07:25 Eosinophils % (Manual) 0 % (0-6) 03/16/20 07:25 Basophils % (Manual) 0 % (0-2) 03/16/20 07:25 Abs Neuts (Manual) 18.7 10^3/uL (1.7-8.2) H 03/16/20 07:25 Abs Lymphs (Manual) 0.6 10^3/uL (0.5-4.7) 03/16/20 07:25 Abs Monocytes (Manual) 1.2 10^3/uL (0.1-1.4) 03/16/20 07:25 Absolute Eos (Manual) 0.0 10^3/uL (0.0-0.6) 03/16/20 07:25 Abs Basophils (Manual) 0.0 10^3/uL (0.0-0.2) 03/16/20 07:25 Toxic Granulation SLIGHT 03/15/20 17:40 Large Platelets PRESENT 03/15/20 17:40 Platelet Comment ADEQUATE 03/16/20 07:25 Polychromasia 1+ 03/15/20 23:37 Poikilocytosis SLIGHT 03/15/20 17:40 Anisocytosis SLIGHT 03/16/20 07:25 Ovalocytes 1+ 03/16/20 07:25 Autumn Cells SLIGHT 03/16/20 07:25 Sodium 133.2 mmol/L (137-145) L 03/21/20 13:00 Potassium 4.3 mmol/L (3.6-5.0) 03/21/20 13:00 Chloride 101 mmol/L (98-107) 03/21/20 13:00 Carbon Dioxide 27 mmol/L (22-30) 03/21/20 13:00 Anion Gap 5 (5-19) 03/21/20 13:00 BUN 15 mg/dL (7-20) 03/21/20 13:00 Creatinine 1.24 mg/dL (0.52-1.25) 03/21/20 13:00 Est GFR ( Amer) > 60 (>60) 03/21/20 13:00 Est GFR (MDRD) Non-Af 56 (>60) L 03/21/20 13:00 Glucose 283 mg/dL (75-110) H 03/21/20 13:00 POC Glucose 232 mg/dL (70-110) H 03/21/20 16:32 Hemoglobin A1c % 7.8 % (4.7-6.0) H 03/14/20 18:19 Calcium 8.0 mg/dL (8.4-10.2) L 03/21/20 13:00 Total Bilirubin 0.3 mg/dL (0.2-1.3) 03/21/20 13:00 Direct Bilirubin 0.0 mg/dL (0.0-0.4) 03/21/20 13:00 Neonat Total Bilirubin Not Reportable 03/21/20 13:00 Neonat Direct Bilirubin Not Reportable 03/21/20 13:00 Neonat Indirect Bili Not Reportable 03/21/20 13:00 AST 15 U/L (17-59) L 03/21/20 13:00 ALT 9 U/L (<50) 03/21/20 13:00 Alkaline Phosphatase 58 U/L (38-126) 03/21/20 13:00 Total Protein 5.2 g/dL (6.3-8.2) L 03/21/20 13:00 Albumin 2.5 g/dL (3.5-5.0) L 03/21/20 13:00 Urine Color YELLOW 03/14/20 21:25 Urine Appearance SLIGHTLY-CLOUDY 03/14/20 21:25 Urine pH 5.0 (5.0-9.0) 03/14/20 21:25 Ur Specific [place] 1.026 03/14/20 21:25 Urine Protein 30 mg/dL (NEGATIVE) H 03/14/20 21:25 Urine Glucose (UA) 150 mg/dL (NEGATIVE) H 03/14/20 21:25 Urine Ketones 20 mg/dL (NEGATIVE) H 03/14/20 21:25 Urine Blood NEGATIVE (NEGATIVE) 03/14/20 21:25 Urine Nitrite NEGATIVE (NEGATIVE) 03/14/20 21:25 Urine Bilirubin NEGATIVE (NEGATIVE) 03/14/20 21:25 Urine Urobilinogen 2.0 mg/dL (<2.0) H 03/14/20 21:25 Ur Leukocyte Esterase NEGATIVE (NEGATIVE) 03/14/20 21:25 Urine WBC (Auto) 2 /HPF 03/14/20 21:25 Urine RBC (Auto) 2 /HPF 03/14/20 21:25 U Hyaline Cast (Auto) 1 /LPF 03/14/20 21:25 Urine Mucus (Auto) MANY /LPF 03/14/20 21:25 Urine Ascorbic Acid NEGATIVE (NEGATIVE) 03/14/20 21:25 Gastric Occult Blood POSITIVE (NEGATIVE) 03/15/20 11:22 Stool for White Cells NO WBCs SEEN 03/17/20 16:27 Stl C. Difficile GDH Ag POSITIVE (NEGATIVE) 03/17/20 16:27 Stl C.difficile Tox A&B NEGATIVE (NEGATIVE) 03/17/20 16:27 Stl C.difficile Tox PCR NEGATIVE (NEGATIVE) 03/17/20 16:27 Time Trough Drawn 0735 03/18/20 07:35 Vancomycin Trough 15.8 ug/mL (5.0-20.0) 03/18/20 07:35 SARS-CoV-2 (PCR) NEGATIVE (NEGATIVE) 03/15/20 18:30 Impressions: Chest X-Ray 03/14/20 00:00 IMPRESSION: NO ACUTE RADIOGRAPHIC FINDING IN THE CHEST. Forearm X-Ray 03/14/20 00:00 IMPRESSION: NEGATIVE STUDY OF THE RIGHT FOREARM. NO RADIOGRAPHIC EVIDENCE OF ACUTE INJURY. KUB X-Ray 03/15/20 13:16 IMPRESSION: Limited view the abdomen for NG tube placement as described. Stroke Is this a Stroke Patient?: No Acute Heart Failure - Is this a Heart Failure Patient?: No
[2020-03-21] MEDS: ATORVASTATIN CALCIUM 40 MG TABLET PO SCH (21:32)
[2020-03-22] MEDS: SUCRALFATE 1 GM TABLET PO SCH ×2 (08:23→11:16)
[2020-03-22] MEDS: OXYCODONE HCL IR 5 MG TABLET PO SCH ×3 (08:23→13:53)
[2020-03-22] MEDS: INSULIN LISPRO 100 UNIT/ML 3 ML VIAL SUBCUT SCH ×2 (08:24→11:16)
[2020-03-22] MEDS: GABAPENTIN 300 MG CAPSULE PO SCH ×2 (09:14→13:53)
[2020-03-22] MEDS: MAGNESIUM OXIDE 400 MG TABLET PO SCH (09:14)
[2020-03-22] MEDS: SITAGLIPTIN PHOSPHATE 50 MG TABLET PO SCH (09:15)
[2020-03-22] MEDS: PANTOPRAZOLE SODIUM 40 MG TABLET.DR PO SCH (09:15)
[2020-03-22] MEDS: EZETIMIBE 10 MG TABLET PO SCH (09:15)
[2020-03-22] MEDS: ENOXAPARIN SODIUM INJ 40 MG/0.4 ML DISP.SYRIN SUBCUT SCH (09:16)
[2020-03-22] MEDS: CLOBETASOL PROPIONATE 0.05% CREAM 15 GM TP SCH (09:16)
[2020-03-22 11:21] VITALS: BP 134/66
== END 2020-03-22 15:07 | DRG 602 ==
LOC: 3S 16:29
PROVIDERS: ADMIT Internal Medicine; ATTEND Internal Medicine
PROC: 0DB78ZX Excision of Stomach, Pylorus, Via Natural or Artificial Opening Endoscopic, Diagnostic (ICD-10-PCS; principal; 2020-03-16 12:00)
DX: L03.114 Cellulitis of left upper limb (principal); K22.11 Ulcer of esophagus with bleeding; L03.116 Cellulitis of left lower limb; J44.9 Chronic obstructive pulmonary disease, unspecified; L30.9 Dermatitis, unspecified; L40.9 Psoriasis, unspecified; L03.113 Cellulitis of right upper limb; R29.6 Repeated falls; E11.65 Type 2 diabetes mellitus with hyperglycemia; I25.10 Atherosclerotic heart disease of native coronary artery without angina pectoris; E78.5 Hyperlipidemia, unspecified; I10 Essential (primary) hypertension; K21.9 Gastro-esophageal reflux disease without esophagitis; E11.42 Type 2 diabetes mellitus with diabetic polyneuropathy; F32.9 Major depressive disorder, single episode, unspecified; F43.12 Post-traumatic stress disorder, chronic; F17.210 Nicotine dependence, cigarettes, uncomplicated; I25.2 Old myocardial infarction; Z79.899 Other long term (current) drug therapy; Z79.82 Long term (current) use of aspirin; Z79.4 Long term (current) use of insulin; Z95.5 Presence of coronary angioplasty implant and graft; Z91.81 History of falling; Z88.6 Allergy status to analgesic agent; Z88.0 Allergy status to penicillin; Z88.7 Allergy status to serum and vaccine; Z91.048 Other nonmedicinal substance allergy status; Z79.891 Long term (current) use of opiate analgesic; Z85.51 Personal history of malignant neoplasm of bladder; Z11.59 Encounter for screening for other viral diseases
CPT/HCPCS: 00731; 36415; 43239; 71045; 74018; 80048; 80053; 80076; 80202; 81001; 82271; 82565; 82962; 83036; 85025; 87045; 87086; 87205; 87324; 87449; 87493; 87635; 88305; 88342; 89055; 99140; C9113; C9803; J0171; J1170; J1200; J1650; J1815; J2405; J2543; J2704; J3370; J3480; J3490; J7050; J7060; J7120

== ENCOUNTER 2020-08-18 00:08 | Inpatient (IN) | payer MEDICARE, OTHER ==
[2020-08-18 01:14] LABS: HEMATOCRIT 46.3 % (37.9-51.0); HEMOGLOBIN 15.6 g/dL (13.5-17.0); MEAN CORPUSCULAR HEMOGLOBIN 26.8 pg (27.0-33.4); MEAN CORPUSCULAR HGB CONC 33.6 g/dL (32.0-36.0); MEAN CORPUSCULAR VOLUME 80 fl (80-97); PLATELET COUNT 188 10^3/uL (150-450); RED BLOOD COUNT 5.81 10^6/uL (4.35-5.55); RED CELL DISTRIBUTION WIDTH 15.6 % (11.5-14.0); WHITE BLOOD COUNT 11.7 10^3/uL (4.0-10.5)
[2020-08-18 01:17] LABS: ALBUMIN 4.1 g/dL (3.5-5.0); ALKALINE PHOSPHATASE 83 U/L (38-126); ANION GAP 15 (5-19); ASPARTATE AMINO TRANSFERASE 19 U/L (17-59); BILIRUBIN,DIRECT 0.3 mg/dL (0.0-0.4); BILIRUBIN,TOTAL 0.8 mg/dL (0.2-1.3); BLOOD UREA NITROGEN 21 mg/dL (7-20); CALCIUM 10.3 mg/dL (8.4-10.2); CARBON DIOXIDE 26 mmol/L (22-30); CHLORIDE 100 mmol/L (98-107); GLUCOSE 268 mg/dL (75-110); POTASSIUM 3.9 mmol/L (3.6-5.0); TOTAL PROTEIN 7.2 g/dL (6.3-8.2)
[2020-08-18 01:36] LABS: APPEARANCE,URINE CLEAR; BILIRUBIN,URINE NEGATIVE (NEGATIVE); COLOR,URINE YELLOW; GLUCOSE, URINE >=500 mg/dL (NEGATIVE); KETONES,URINE 80 mg/dL (NEGATIVE); LEUKOCYTE ESTERASE,URINE NEGATIVE (NEGATIVE); NITRITE,URINE NEGATIVE (NEGATIVE); PROTEIN,URINE 100 mg/dL (NEGATIVE); UROBILINOGEN,URINE NEGATIVE mg/dL (<2.0)
[2020-08-18 02:01] LABS: ABSOLUTE LYMPHOCYTES# (MANUAL) 0.6 10^3/uL (0.5-4.7); ABSOLUTE MONOCYTES # (MANUAL) 0.6 10^3/uL (0.1-1.4); BASOPHILS % (MANUAL) 0 % (0-2); EOSINOPHILS % (MANUAL) 0 % (0-6); LYMPHOCYTES % (MANUAL) 5 % (13-45); MONOCYTES % (MANUAL) 5 % (3-13); SEGMENTED NEUTROPHILS % (MAN) 90 % (42-78); TOTAL CELLS COUNTED 100
[2020-08-18 02:03] LABS: ANISOCYTOSIS SLIGHT; BURR CELLS SLIGHT; HYPOCHROMASIA SLIGHT
[2020-08-18 02:04] LABS: OVALOCYTES SLIGHT; PLATELET COMMENT ADEQUATE
[2020-08-18 02:05] LABS: HYPERSEGMENTED NEUTROPHILS PRESENT
[2020-08-18] MEDS ORDERED: NORMAL SALINE 1000 ML 1,000 ML IV ONE (04:40)
[2020-08-18] MEDS ORDERED: PANTOPRAZOLE SODIUM 40 MG VIAL IV ONE (04:41)
[2020-08-18] MEDS ORDERED: PANTOPRAZOLE SODIUM 40 MG VIAL IV PRN (04:41)
[2020-08-18] MEDS ORDERED: MORPHINE SULFATE 10 MG/ML INJ IV ONE (04:42)
[2020-08-18] MEDS ORDERED: ONDANSETRON HCL INJ/PF 4 MG/2 ML SDV IV ONE (04:43)
--- NOTE | 2020-08-18 04:44 | ER Document Report ---
ED General - General Chief Complaint: Nausea/Vomiting Stated Complaint: ABDOMINAL PAIN,GI BLEED,GENERALIZED WEAKNESS Time Seen by Provider: 08/18/20 04:25 Primary Care Provider: RAUL VEGA MD [Primary Care Provider] - Follow up as needed TRAVEL OUTSIDE OF THE [place] IN LAST 30 DAYS: No - HPI Context: Time:444 Chief Complaint: [Vomiting blood and epigastric pain] [This is a 80-year-old man with a history of esophageal ulcerations and exudates who presents to the emergency department complaining of 1 day of epigastric pain and hematemesis. Patient denies drinking alcohol. Patient has been admitted to this facility once before and undergone EGD by Dr. Montero for the same problem. Patient was told to use a PPI twice a day and Carafate 4 times a day for 2 weeks ] History obtained from [patient] Symptoms began:[Today] Onset: [Sudden] Timing: [Sudden] Quality: [Sharp and burning] Intensity: [5] Location: [Epigastric region] Radiation: [Denies] [The pain does not migrate to a new location.] Aggravating factors: [none] Relieving factors: [none] [Denies] SOB Positive nausea Positive vomiting [Denies] sweats [Denies] fever [Denies] cough [Denies] calf or leg swelling or pain - Related Data Allergies/Adverse Reactions: adhesive [Adhesive] Allergy (Verified 08/18/20 00:29) NSAIDS (Non-Steroidal Anti-Inflamma [Nsaids] Allergy (Verified 08/18/20 00:29) Penicillins Allergy (Verified 08/18/20 00:29) cholera vacine Allergy (Uncoded 08/18/20 00:29) yellow fever vacine Allergy (Uncoded 08/18/20 00:29) Past Medical History - General Information source: Patient - Social History Smoking Status: Current Every Day Smoker Chew tobacco use (# tins/day): No Frequency of alcohol use: None Drug Abuse: None Family History: CAD, Other - leukemia Patient has homicidal ideation: No - Past Medical History Cardiac Medical History: Reports: Hx Coronary Artery Disease, Hx Hypercholesterolemia, Hx Hypertension Pulmonary Medical History: Reports: Hx COPD Endocrine Medical History: Reports: Hx Diabetes Mellitus Type 1, Hx Diabetes Mellitus Type 2 Renal/ Medical History: Reports: Hx Benign Prostatic Hyperplasia, Hx Kidney Stones. Denies: Hx Peritoneal Dialysis GI Medical History: Reports: Hx Gastroesophageal Reflux Disease Musculoskeletal Medical History: Reports Hx Arthritis Psychiatric Medical History: Reports: Hx Depression, Hx Post Traumatic Stress Disorder Past Surgical History: Reports: Hx Cardiac Catheterization, Hx Cardiac Surgery, Hx Coronary Stent, Hx Orthopedic Surgery - back from ruptured disc - Immunizations Hx Diphtheria, Pertussis, Tetanus Vaccination: Yes Hx Pneumococcal Vaccination: 08/30/10 Review of Systems - Review of Systems Notes: Review of systems as below unless otherwise stated in HPI. CONSTITUTIONAL [No] fever, [No] chills. EYES [No] eye pain. ENT [No] URI symptoms, [No] sore throat, [No] ear pain. CARDIOVASCULAR [No] chest pain, [No] palpitations, [No] edema. RESPIRATORY [No] Cough, [No] SOB, [No] wheezing. GASTROINTESTINAL Positive abdominal pain, positive nausea, [No] Diarrhea, positive vomiting, [No] constipation, positive hematemesis, [No] rectal bleeding. GENITOURINARY [No] dysuria, [No] urinary frequency, [No] hematuria, [No] urinary urgency MUSCULOSKELETAL [No] Back pain. SKIN [No] Rash. NEUROLOGIC [No] Headache, [No] recent seizures, [No] paralysis,[No] parathesias. ENDOCRINE [No] polyuria. HEMO/LYMPATIC [No] easy brusing PSYCHIATRIC [No] depression. Physical Exam - Vital signs Vitals: Temp 97.7 F 08/18/20 00:08 - Notes Notes: CONSTITUTIONAL [Vital signs reviewed, Patient appears uncomfortable, Alert and oriented X 3, Normal stature.] HEAD [Atraumatic, Normocephalic.] EYES [Eyes are normal to inspection, No discharge from eyes, Extraocular muscles intact, Sclera are normal, Conjunctiva are normal.] ENT [External ears normal to inspection, Nose examination normal, Mouth normal to inspection.] NECK [Normal ROM, No jugular venous distention, No meningeal signs, ] RESPIRATORY CHEST [Chest is nontender, Breath sounds normal, No respiratory distress.] CARDIOVASCULAR Tachycardia no murmurs, Normal S1 S2, No rub, No gallop.] ABDOMEN [Abdomen is nontender, No pulsatile masses, No other masses, Bowel sounds normal, No distension, No peritoneal signs, No hernias.] RECTAL Guaiac negative BACK [There is no CVA Tenderness, There is no tenderness to palpation, Normal inspection.] UPPER EXTREMITY [Inspection normal, No cyanosis, No clubbing, No edema, LOWER EXTREMITY [Inspection normal, No cyanosis, No clubbing, No edema, No calf tenderness, NEURO [No focal motor deficits, No focal sensory deficits, Speech normal.] SKIN [Skin is warm, Skin is dry, Skin is normal color.] LYMPHATIC [No adenopathy in neck.] PSYCHIATRIC [Normal affect. ] Course - Vital Signs Vital signs: Temp Pulse Resp BP Pulse Ox 97.7 F 31 H 134/65 H 97 08/18/20 00:08 08/18/20 03:02 08/18/20 03:02 08/18/20 03:02 - Laboratory Results Result Diagrams: 08/18/20 00:45 08/18/20 00:45 Laboratory Results Interpreted: 08/18/20 08/18/20 12 00:45 00:45 00:56 WBC 11.7 H RBC 5.81 H MCH 26.8 L RDW 15.6 H Seg Neuts % (Manual) 90 H Lymphocytes % (Manual) 5 L Abs Neuts (Manual) 10.5 H BUN 21 H Glucose 268 H Calcium 10.3 H Urine Protein 100 H Urine Glucose (UA) >=500 H Urine Ketones 80 H Urine Blood MODERATE H Critical Laboratory Results Reviewed: No Critical Results Attending or Supervising Physician who Reviewed Labs: JIMENA MOYER IV - Radiology Results Critical Radiology Results Reviewed: No Critical Results Attending or Supervising Physician who Reviewed Radiology: JIMENA MOYER IV Discharge - Discharge Clinical Impression: Hematemesis Qualifiers: Nausea presence: with nausea Qualified Code(s): K92.0 - Hematemesis Condition: Stable Disposition: ADMITTED INPATIENT Admitting Provider: Jacy Unit Admitted: IMCU Referrals: RAUL VEGA MD [Primary Care Provider] - Follow up as needed
--- NOTE | 2020-08-18 05:39 | RADIOLOGY REPORT (SQ) ---
CHEST X-RAY 1 VIEW on 08/18/2020 at 4:36 AM CLINICAL INDICATION: Hematemesis COMPARISON: 03/14/2020 FINDINGS: Vascular calcification is noted in the aorta. The lungs are clear. Cardiac, hilar and mediastinal contours are within normal limits. Pulmonary vascularity is within normal limits. No bony abnormality is noted. IMPRESSION: No acute disease.
[2020-08-18 06:34] LABS: INTERNATIONAL RATION (INR) 1.13; PROTHROMBIN TIME 14.7 SEC (11.4-15.4)
[2020-08-18] MEDS ORDERED: GLUCAGON,HUMAN RECOMB 1 MG INJ SUBCUT PRN (13:27)
[2020-08-18] MEDS ORDERED: DEXTROSE 50%-WATER 25 GM/50 ML DISP.SYRIN IV PRN ×4 (13:27→13:42)
[2020-08-18] MEDS ORDERED: DEXTROSE 40% GEL 15 GM TUBE PO PRN ×4 (13:27→13:42)
[2020-08-18] MEDS ORDERED: IPRATROPIUM/ALBUTEROL 0.5-2.5 MG/3 ML AMPUL NEB PRN (13:27)
[2020-08-18] MEDS ORDERED: GLUCAGON,HUMAN RECOMB 1 MG INJ IM PRN (13:42)
[2020-08-18] MEDS ORDERED: PHARMACY COMMUNICATION ORDER MC NR (13:45)
[2020-08-18] MEDS: PANTOPRAZOLE SODIUM 40 MG VIAL IV SCH ×2 (14:55→21:41)
[2020-08-18] MEDS: POTASSI CL 20 MEQ/D5NS 1L 20 MEQ/1,000 ML RTUINJ IV PRN (14:56)
[2020-08-18 15:15] LABS: CREATINE KINASE MB 5.38 ng/mL (<4.55); TROPONIN I 0.026 ng/mL
[2020-08-18 15:20] LABS: INTERNATIONAL RATION (INR) 1.29; PROTHROMBIN TIME 16.3 SEC (11.4-15.4)
[2020-08-18 15:21] LABS: PARTIAL THROMBOPLASTIN TIME 33.5 SEC (23.5-35.8)
[2020-08-18 16:18] LABS: PHOSPHORUS 2.5 mg/dL (2.5-4.5)
[2020-08-18] MEDS: INSULIN LISPRO 100 UNIT/ML 3 ML VIAL SUBCUT SCH ×2 (16:31→17:18)
[2020-08-18 16:36] LABS: FREE T4 (FREE THYROXINE) 1.82 ng/dL (0.78-2.19)
[2020-08-18 16:47] LABS: APPEARANCE,URINE CLEAR; BILIRUBIN,URINE NEGATIVE (NEGATIVE); COLOR,URINE STRAW; GLUCOSE, URINE >=500 mg/dL (NEGATIVE); KETONES,URINE 80 mg/dL (NEGATIVE); LEUKOCYTE ESTERASE,URINE NEGATIVE (NEGATIVE); NITRITE,URINE NEGATIVE (NEGATIVE); PROTEIN,URINE 30 mg/dL (NEGATIVE); URINE SPECIFIC GRAVITY 1.023; UROBILINOGEN,URINE NEGATIVE mg/dL (<2.0)
[2020-08-18 16:50] LABS: THYROID STIMULATING HORMONE 0.13 uIU/mL (0.47-4.68)
--- NOTE | 2020-08-18 18:15 | RADIOLOGY REPORT (SQ) ---
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 NUMBER OF VIEWS: One view. TECHNIQUE: Supine radiographic image of the upper abdomen acquired. LIMITATIONS: None. FINDINGS: BOWEL GAS PATTERN: Normal bowel gas pattern. No dilated loops. CALCIFICATIONS: No suspicious calcifications. SOFT TISSUES: No gross mass or suggestion of organomegaly. HARDWARE: Nasogastric tube, tip in the stomach. BONES: No acute fracture. Degenerative changes in the spine. No worrisome bone lesions. OTHER: No other significant finding. IMPRESSION: TIP OF THE NASOGASTRIC TUBE IS IN THE STOMACH. TECHNICAL DOCUMENTATION: JOB ID: [id number] [employer]- All Rights Reserved Reading location - IP/workstation name: [email or web address]
--- NOTE | 2020-08-18 18:41 | PDOC H&P ---
History of Present Illness Admission Date/PCP: 08/18/20 06:11 RAUL VEGA MD History of Present Illness: MILLA HENDERSON is a 80 year old male He has a history of type 2 diabetes mellitus, tobacco abuse, COPD, he came to the emergency room earlier this morning for evaluation of vomiting blood with epigastric pain. He had a similar presentation in February, he underwent upper endoscopy on March 16, 2020, at the time the EGD demonstrated diffuse ulceration and exudates study from the GE junction and involved the mid and distal esophagusThe hemogram that was done in the ER was normal, patient be admitted for management Past Medical History Cardiac Medical History: Reports: Coronary Artery Disease, Hyperlipidema, Hypertension Pulmonary Medical History: Reports: Chronic Obstructive Pulmonary Disease (COPD) Endocrine Medical History: Reports: Diabetes Mellitus Type 2 GI Medical History: Reports: Gastroesophageal Reflux Disease Musculoskeltal Medical History: Reports: Arthritis Psychiatric Medical History: Reports: Depression, Post Traumatic Stress Disorder Past Surgical History Past Surgical History: Reports: Cardiac Catheterization, Coronary Stent, Orthopedic Surgery - back from ruptured disc Social History Smoking Status: Current Every Day Smoker Cigarettes Packs Per Day: 1.5 Electronic Cigarette use?: No Frequency of Alcohol Use: None Hx Recreational Drug Use: No Drugs: None Hx Prescription Drug Abuse: No Family History Family History: CAD, Other - leukemia Parental Family History Reviewed: Yes Children Family History Reviewed: Yes Sibling(s) Family History Reviewed.: Yes Medication/Allergy Home Medications: Gabapentin [Neurontin] 600 mg PO QID 04/17/13 Rosuvastatin Calcium [Crestor 20 mg Tablet] 20 mg PO DAILY 04/17/13 Aspirin [Ecotrin 81 mg EC Tablet] 81 mg PO DAILY 03/14/20 Ezetimibe 10 mg PO DAILY 03/14/20 Insulin Aspart Prot/Insuln Asp [Novolog Mix 70-30 Flexpen] 26 unit SUBCUT MEALS 03/14/20 Magnesium Oxide 1,600 mg PO DAILY 03/14/20 Omeprazole 20 mg PO DAILY 03/14/20 Sitagliptin Phosphate [Januvia 50 mg Tablet] 100 mg PO DAILY 03/14/20 Clobetasol Propionate [Temovate 0.05% Cream 15 gm] 1 applic TP DAILY tube 03/21/20 Dapagliflozin Propanediol [Farxiga] 10 mg PO DAILY #200 tablet 07/23/20 Exenatide Microspheres [Bydureon Bcise] 2 mg SQ Q7D #1000 auto.injct 03/21/20 Insulin Lispro [Humalog Insulin (Lispro) 100 unit/mL] 0 - 12 unit SUBCUT ACHS unit 03/21/20 Oxycodone HCl [Oxy-Ir 5 mg Tablet] 15 mg PO Q6 #0 03/21/20 Pantoprazole Sodium [Protonix [address] Tablet] 40 mg PO BID tablet.dr 03/21/20 Sucralfate [Carafate 1 gm Tablet] 1 gm PO ACHS tablet 03/21/20 Allergies/Adverse Reactions: adhesive [Adhesive] Allergy (Verified 08/18/20 00:29) NSAIDS (Non-Steroidal Anti-Inflamma [Nsaids] Allergy (Verified 08/18/20 00:29) Penicillins Allergy (Verified 08/18/20 00:29) cholera vacine Allergy (Uncoded 08/18/20 00:29) yellow fever vacine Allergy (Uncoded 08/18/20 00:29) Review of Systems Constitutional: ABSENT: chills, fever(s), headache(s), weight gain, weight loss Eyes: ABSENT: visual disturbances Ears: ABSENT: hearing changes Cardiovascular: ABSENT: chest pain, dyspnea on exertion, edema, orthropnea, pal pitations Respiratory: ABSENT: cough, hemoptysis Gastrointestinal: PRESENT: hematemesis, vomiting Genitourinary: ABSENT: dysuria, hematuria Musculoskeletal: ABSENT: joint swelling Integumentary: ABSENT: rash, wounds Neurological: ABSENT: abnormal gait, abnormal speech, confusion, dizziness, focal weakness, syncope Psychiatric: ABSENT: anxiety, depression, homidical ideation, suicidal ideation Endocrine: ABSENT: cold intolerance, heat intolerance, menstrual abnormalities, polydipsia, polyuria Hematologic/Lymphatic: ABSENT: easy bleeding, easy bruising, lymphadenopathy Physical Exam Vital Signs: Temp Pulse Resp BP Pulse Ox 98.1 F 117 H 18 171/86 H 100 08/18/20 16:09 08/18/20 16:09 08/18/20 16:09 08/18/20 16:09 08/18/20 16:09 Intake & Output 08/17/20 08/18/20 08/19/20 06:59 06:59 06:59 Intake Total 1240 Output Total 1350 Balance 1240 -1350 Weight 69.853 kg 60.6 kg General appearance: PRESENT: no acute distress Head exam: PRESENT: atraumatic, normocephalic Eye exam: PRESENT: PERRLA. ABSENT: scleral icterus Ear exam: PRESENT: normal external ear exam Mouth exam: PRESENT: moist, tongue midline Neck exam: PRESENT: full ROM. ABSENT: carotid bruit, JVD, lymphadenopathy, thyromegaly Respiratory exam: PRESENT: clear to auscultation carmen Cardiovascular exam: PRESENT: RRR, +S1, +S2 Pulses: PRESENT: normal dorsalis pedis pul, +2 pedal pulses bilateral Vascular exam: PRESENT: normal capillary refill GI/Abdominal exam: PRESENT: normal bowel sounds, soft Rectal exam: PRESENT: deferred Neurological exam: PRESENT: alert, CN II-XII grossly intact Psychiatric exam: PRESENT: appropriate affect, normal mood. ABSENT: homicidal ideation, suicidal ideation Skin exam: PRESENT: dry, intact, warm. ABSENT: cyanosis, rash Results Laboratory Results: 08/18/20 00:45 08/18/20 00:45 08/18/20 08/18/20 08/18/20 00:45 00:45 00:56 WBC 11.7 H RBC 5.81 H Hgb 15.6 Hct 46.3 MCV 80 MCH 26.8 L MCHC 33.6 RDW 15.6 H Plt Count 188 Seg Neutrophils % Not Reportable Sodium 141.2 Potassium 3.9 Chloride 100 Carbon Dioxide 26 Anion Gap 15 BUN 21 H Creatinine 0.76 Est GFR ( Amer) > 60 Glucose 268 H Calcium 10.3 H Phosphorus Magnesium Total Bilirubin 0.8 AST 19 Alkaline Phosphatase 83 Ammonia Total Protein 7.2 Albumin 4.1 Amylase Lipase 137.8 TSH Free T4 Urine Color YELLOW Urine Appearance CLEAR Urine pH 5.0 Ur Specific [place] 1.020 Urine Protein 100 H Urine Glucose (UA) >=500 H Urine Ketones 80 H Urine Blood MODERATE H Urine Nitrite NEGATIVE Ur Leukocyte Esterase NEGATIVE Urine WBC (Auto) 2 Urine RBC (Auto) 75 Blood Type Antibody Screen 08/18/20 08/18/20 08/18/20 05:00 14:28 15:22 WBC RBC Hgb Hct MCV MCH MCHC RDW Plt Count Seg Neutrophils % Sodium Potassium Chloride Carbon Dioxide Anion Gap BUN Creatinine Est GFR ( Amer) Glucose Calcium Phosphorus 2.5 Magnesium 1.8 Total Bilirubin AST Alkaline Phosphatase Ammonia 32.2 Total Protein Albumin Amylase 42 Lipase 84.7 TSH Free T4 Urine Color Urine Appearance Urine pH Ur Specific [place] Urine Protein Urine Glucose (UA) Urine Ketones Urine Blood Urine Nitrite Ur Leukocyte Esterase Urine WBC (Auto) Urine RBC (Auto) Blood Type B NEGATIVE Antibody Screen NEGATIVE 08/18/20 08/18/20 15:22 16:15 WBC RBC Hgb Hct MCV MCH MCHC RDW Plt Count Seg Neutrophils % Sodium Potassium Chloride Carbon Dioxide Anion Gap BUN Creatinine Est GFR ( Amer) Glucose Calcium Phosphorus Magnesium Total Bilirubin AST Alkaline Phosphatase Ammonia Total Protein Albumin Amylase Lipase TSH 0.13 L Free T4 1.82 Urine Color STRAW Urine Appearance CLEAR Urine pH 6.0 Ur Specific [place] 1.023 Urine Protein 30 H Urine Glucose (UA) >=500 H Urine Ketones 80 H Urine Blood SMALL H Urine Nitrite NEGATIVE Ur Leukocyte Esterase NEGATIVE Urine WBC (Auto) 0 Urine RBC (Auto) 1 Blood Type Antibody Screen 08/18/20 08/18/20 08/18/20 14:28 14:28 15:22 Creatine Kinase 65 72 CK-MB (CK-2) 5.38 H Troponin I 0.026 Impressions: Chest X-Ray 08/18/20 04:26 IMPRESSION: No acute disease. KUB X-Ray 08/18/20 13:44 IMPRESSION: TIP OF THE NASOGASTRIC TUBE IS IN THE STOMACH. Assessment & Plan - Diagnosis (1) Upper GI bleed Is this a current diagnosis for this admission?: Yes Plan: The hemogram is normal, he may need upper endoscopy, Will consult surgeon for EGD - Time Time Spent: Greater than 70 Minutes Critical Time spent with patient: 35 or more minutes Medications reviewed and adjusted accordingly: Yes Anticipated Discharge Disposition: Home, Self Care Anticipated Discharge Timeframe: within 72 hours - Inpatient Certification Based on my medical assessment, after consideration of the patient's comorbidities, presenting symptoms, or acuity I expect that the services needed warrant INPATIENT care.: Yes I certify that my determination is in accordance with my understanding of Medicare's requirements for reasonable and necessary INPATIENT services [42 CFR 412.3e].: Yes
[2020-08-18 20:04] LABS: CREATINE KINASE MB 5.93 ng/mL (<4.55); TROPONIN I 0.041 ng/mL
[2020-08-19] MEDS: INSULIN LISPRO 100 UNIT/ML 3 ML VIAL SUBCUT SCH ×5 (00:38→23:36)
[2020-08-19] MEDS: POTASSI CL 20 MEQ/D5NS 1L 20 MEQ/1,000 ML RTUINJ IV PRN ×2 (00:42→23:25)
[2020-08-19 02:52] LABS: CREATINE KINASE MB 5.81 ng/mL (<4.55); TROPONIN I 0.045 ng/mL
[2020-08-19 06:26] LABS: HEMATOCRIT 40.6 % (37.9-51.0); MEAN CORPUSCULAR HEMOGLOBIN 26.3 pg (27.0-33.4); MEAN CORPUSCULAR HGB CONC 33.1 g/dL (32.0-36.0); MEAN CORPUSCULAR VOLUME 80 fl (80-97); PLATELET COUNT 265 10^3/uL (150-450); RED CELL DISTRIBUTION WIDTH 15.9 % (11.5-14.0)
[2020-08-19 06:55] LABS: ALBUMIN 3.5 g/dL (3.5-5.0); ALKALINE PHOSPHATASE 71 U/L (38-126); ANION GAP 14 (5-19); ASPARTATE AMINO TRANSFERASE 18 U/L (17-59); BILIRUBIN,DIRECT 0.2 mg/dL (0.0-0.4); BILIRUBIN,TOTAL 0.6 mg/dL (0.2-1.3); BLOOD UREA NITROGEN 46 mg/dL (7-20); CALCIUM 10.1 mg/dL (8.4-10.2); CARBON DIOXIDE 19 mmol/L (22-30); CHLORIDE 110 mmol/L (98-107); CHOLESTEROL 76.51 mg/dL (0-200); GLUCOSE 358 mg/dL (75-110); POTASSIUM 3.5 mmol/L (3.6-5.0); TOTAL PROTEIN 6.1 g/dL (6.3-8.2); TRIGLYCERIDES 101 mg/dL (<150)
[2020-08-19 07:07] LABS: DIRECT LDL < 30 mg/dL (<100)
[2020-08-19 07:54] LABS: ANISOCYTOSIS 1+; BASOPHILS % (MANUAL) 0 % (0-2); EOSINOPHILS % (MANUAL) 0 % (0-6); LYMPHOCYTES % (MANUAL) 2 % (13-45); METAMYELOCYTES % (MANUAL) 1 % (0-1); MONOCYTES % (MANUAL) 3 % (3-13); SEGMENTED NEUTROPHILS % (MAN) 93 % (42-78); TOTAL CELLS COUNTED 100
[2020-08-19 07:55] LABS: BURR CELLS 1+; OVALOCYTES 1+; PLATELET COMMENT ADEQUATE; POIKILOCYTOSIS 1+
[2020-08-19 07:58] LABS: WHITE BLOOD COUNT 33.5 10^3/uL (4.0-10.5)
[2020-08-19 08:06] LABS: HEMOGLOBIN 13.4 g/dL (13.5-17.0)
[2020-08-19] MEDS ORDERED: VANCOMYCIN HCL 1,000 MG in DEXTROSE 5%-WATER 250 ML IV ONE (08:21)
[2020-08-19] MEDS ORDERED: VANCOMYCIN HCL 0 MG in DEXTROSE 5%-WATER 250 ML IV NR (08:30)
[2020-08-19] MEDS ORDERED: DILTIAZEM HCL/D5W 125 MG/125 ML RTUINJ IV ONE (08:45)
--- NOTE | 2020-08-19 09:06 | RADIOLOGY REPORT (SQ) ---
EXAM DESCRIPTION: CHEST SINGLE VIEW IMAGES COMPLETED DATE/TIME: 08/19/2020 8:48 am REASON FOR STUDY: aspiration pneumonia COMPARISON: AP view of the chest from 08/18/2020. EXAM PARAMETERS: NUMBER OF VIEWS: One view. TECHNIQUE: An AP view of the chest was obtained. RADIATION DOSE: NA LIMITATIONS: None. FINDINGS: LUNGS AND PLEURA: Opacity in the left retrocardiac space that has developed since the radi ograph from 08/18/2020. The left lateral costophrenic sulcus is blunted. There is no pneumothorax. MEDIASTINUM AND HILAR STRUCTURES: No mediastinal or hilar contour abnormality. HEART AND VASCULAR STRUCTURES: The cardiac silhouette and pulmonary vasculature are within normal corona its. BONES: No acute findings. HARDWARE: None in the chest. OTHER: No other finding. IMPRESSION: 1. Opacity in the left retrocardiac space - correlate with clinical findings to exclude a pneumonia. 2. Blunting of the left lateral costophrenic sulcus which could represent a small amount of pleural fluid. TECHNICAL DOCUMENTATION: JOB ID: [id number] [employer]- All Rights Reserved Reading location - IP/workstation name: [email or web address]
[2020-08-19] MEDS ORDERED: DILTIAZEM HCL/D5W 125 MG/125 ML RTUINJ IV PRN (09:25)
--- NOTE | 2020-08-19 09:35 | PDOC CONSULTATION ---
Consultation Consult Date: 08/19/20 Attending physician:: RAUL VEGA Provider Consulted: RADHA JOYNER Consult reason:: Hematemesis History of Present Illness Admission Date/PCP: 08/18/20 06:11 RAUL VEGA MD History of Present Illness: MILLA HENDERSON is a 80 year old male Presents to the emergency department with weakness, shortness of breath, and one episode of hematemesis. Patient has a history of GI bleed secondary to extensive distal esophageal ulceration diagnosed by Yordan Restrepo and upper endoscopy approximately 6 months ago. No biopsies obtained. Patient now admitted for further evaluation. Overnight patient developed progressive respiratory distress, and atrial fibrillation with a rapid ventricular response. Medical intervention ensuing. Past Medical History Cardiac Medical History: Reports: Coronary Artery Disease, Hyperlipidema, Hypertension Pulmonary Medical History: Reports: Chronic Obstructive Pulmonary Disease (COPD) Endocrine Medical History: Reports: Diabetes Mellitus Type 1, Diabetes Mellitus Type 2 GI Medical History: Reports: Gastroesophageal Reflux Disease Musculoskeltal Medical History: Reports: Arthritis Psychiatric Medical History: Reports: Depression, Post Traumatic Stress Disorder Past Surgical History Past Surgical History: Reports: Cardiac Catheterization, Coronary Stent, Orthopedic Surgery - back from ruptured disc Social History Smoking Status: Current Every Day Smoker Cigarettes Packs Per Day: 1.5 Electronic Cigarette use?: No Frequency of Alcohol Use: None Hx Recreational Drug Use: No Drugs: None Hx Prescription Drug Abuse: No Family History Family History: CAD, Other - leukemia Parental Family History Reviewed: No Children Family History Reviewed: No Sibling(s) Family History Reviewed.: No Medication/Allergy Home Medications: Gabapentin [Neurontin] 600 mg PO QID 04/17/13 Rosuvastatin Calcium [Crestor 20 mg Tablet] 20 mg PO DAILY 04/17/13 Aspirin [Ecotrin 81 mg EC Tablet] 81 mg PO DAILY 03/14/20 Ezetimibe 10 mg PO DAILY 03/14/20 Insulin Aspart Prot/Insuln Asp [Novolog Mix 70-30 Flexpen] 26 unit SUBCUT MEALS 03/14/20 Magnesium Oxide 1,600 mg PO DAILY 03/14/20 Omeprazole 20 mg PO DAILY 03/14/20 Sitagliptin Phosphate [Januvia 50 mg Tablet] 100 mg PO DAILY 03/14/20 Clobetasol Propionate [Temovate 0.05% Cream 15 gm] 1 applic TP DAILY tube 03/21/20 Dapagliflozin Propanediol [Farxiga] 10 mg PO DAILY #200 tablet 03/21/20 Exenatide Microspheres [Bydureon Bcise] 2 mg SQ Q7D #1000 auto.injct 03/21/20 Insulin Lispro [Humalog Insulin (Lispro) 100 unit/mL] 0 - 12 unit SUBCUT ACHS unit 03/21/20 Oxycodone HCl [Oxy-Ir 5 mg Tablet] 15 mg PO Q6 #0 03/21/20 Pantoprazole Sodium [Protonix [address] Tablet] 40 mg PO BID tablet.dr 03/21/20 Sucralfate [Carafate 1 gm Tablet] 1 gm PO ACHS tablet 03/21/20 Allergies/Adverse Reactions: NSAIDS (Non-Steroidal Anti-Inflamma [Nsaids] Allergy (Unknown, Verified 08/19/20 09:04) adhesive [Adhesive] Allergy (Verified 08/18/20 00:29) Penicillins Allergy (Verified 08/18/20 00:29) yellow fever vaccine live Allergy (Verified 08/19/20 09:04) Review of Systems ROS unobtainable: Due to mental status, Other - Patient now with BiPAP in place Physical Exam Vital Signs: Temp Pulse Resp BP Pulse Ox 97.4 F 146 H 44 H 94/80 L 57 L 08/19/20 07:40 08/19/20 08:50 08/19/20 07:40 08/19/20 08:50 08/19/20 08:50 Intake & Output 08/18/20 08/19/20 08/20/20 06:59 06:59 06:59 Intake Total 1240 977 Output Total 1800 Balance 1240 -823 Weight 69.853 kg 61 kg General appearance: PRESENT: other - Severe respiratory distress. Head exam: PRESENT: atraumatic Throat exam: PRESENT: other - Patient with a BiPAP in position. Respiratory exam: PRESENT: other - [place] respiratory distress with accessory muscles of respiration utilized Psychiatric exam: PRESENT: anxious Focused psych exam: PRESENT: restlessness, other Results Laboratory Results: 08/19/20 05:30 08/19/20 05:30 08/18/20 08/18/20 08/18/20 14:28 15:22 15:22 WBC RBC Hgb Hct MCV MCH MCHC RDW Plt Count Seg Neutrophils % Sodium Potassium Chloride Carbon Dioxide Anion Gap BUN Creatinine Est GFR ( Amer) Glucose Calcium Phosphorus 2.5 Magnesium 1.8 Total Bilirubin AST Alkaline Phosphatase Ammonia 32.2 Total Protein Albumin Triglycerides Cholesterol LDL Cholesterol Direct VLDL Cholesterol HDL Cholesterol Amylase 42 Lipase 84.7 TSH 0.13 L Free T4 1.82 Urine Color Urine Appearance Urine pH Ur Specific [place] Urine Protein Urine Glucose (UA) Urine Ketones Urine Blood Urine Nitrite Ur Leukocyte Esterase Urine WBC (Auto) Urine RBC (Auto) 08/18/20 08/19/20 08/19/20 16:15 05:30 05:30 WBC 33.5 H* D RBC 5.10 Hgb 13.4 L D Hct 40.6 MCV 80 MCH 26.3 L MCHC 33.1 RDW 15.9 H Plt Count 265 Seg Neutrophils % Not Reportable Sodium 142.6 Potassium 3.5 L Chloride 110 H Carbon Dioxide 19 L Anion Gap 14 BUN 46 H Creatinine 0.72 Est GFR ( Amer) > 60 Glucose 358 H Calcium 10.1 Phosphorus Magnesium Total Bilirubin 0.6 AST 18 Alkaline Phosphatase 71 Ammonia Total Protein 6.1 L Albumin 3.5 Triglycerides 101 Cholesterol 76.51 LDL Cholesterol Direct < 30 VLDL Cholesterol 20.0 HDL Cholesterol 48 Amylase Lipase TSH Free T4 Urine Color STRAW Urine Appearance CLEAR Urine pH 6.0 Ur Specific [place] 1.023 Urine Protein 30 H Urine Glucose (UA) >=500 H Urine Ketones 80 H Urine Blood SMALL H Urine Nitrite NEGATIVE Ur Leukocyte Esterase NEGATIVE Urine WBC (Auto) 0 Urine RBC (Auto) 1 08/18/20 08/18/20 08/18/20 14:28 14:28 15:22 Creatine Kinase 65 72 CK-MB (CK-2) 5.38 H Troponin I 0.026 08/18/20 08/19/20 08/19/20 19:22 01:42 01:42 Creatine Kinase 73 CK-MB (CK-2) 5.93 H 5.81 H Troponin I 0.041 0.045 Impressions: KUB X-Ray 08/18/20 13:44 IMPRESSION: TIP OF THE NASOGASTRIC TUBE IS IN THE STOMACH. Chest X-Ray 08/19/20 00:00 IMPRESSION: 1. Opacity in the left retrocardiac space - correlate with clinical findings to exclude a pneumonia. 2. Blunting of the left lateral costophrenic sulcus which could represent a small amount of pleural fluid. Assessment & Plan - Diagnosis (1) Hematemesis Qualifiers: Nausea presence: with nausea Qualified Code(s): K92.0 - Hematemesis Is this a current diagnosis for this admission?: Yes Plan: Impression: 1 episode of hematemesis, no further bleeding. Stable hemoglobin. Recent EGD 6 months ago showing diffuse distal esophageal ulceration, no biopsies. Patient reportedly noncompliant with antacid therapy. Patient currently decompensating from a respiratory and cardiac standpoint. Recommendations: 1. Cardio and respiratory support as needed 2. No indication for upper endoscopy at this time. This was discussed with Dr. Vega. We will sign off; please reconsult if clinically indicated. (2) Acute respiratory distress Is this a current diagnosis for this admission?: Yes (3) Atrial fibrillation with rapid ventricular response Is this a current diagnosis for this admission?: Yes (4) COPD (chronic obstructive pulmonary disease) Qualifiers: COPD type: unspecified COPD Qualified Code(s): J44.9 - Chronic obstructive pulmonary disease, unspecified
[2020-08-19 10:17] LABS: ARTERIAL BLOOD BASE EXCESS -3.5 mmol/L; ARTERIAL BLOOD FIO2 15L; ARTERIAL BLOOD H2CO3 0.76 mmol/L (1.05-1.35); ARTERIAL BLOOD HCO3 18.1 mmol/L (20-24); ARTERIAL BLOOD PCO2 25.1 mmHg (35-45); ARTERIAL BLOOD PH 7.48 (7.35-7.45); ARTERIAL BLOOD TOTAL CO2 18.9 mmol/L (23-27)
[2020-08-19 10:20] LABS: ARTERIAL BLOOD PO2 40.9 mmHg (80-100)
[2020-08-19 10:52] LABS: ARTERIAL BLOOD H2CO3 1.32 mmol/L (1.05-1.35); ARTERIAL BLOOD O2 SATURATION 75.6 % (94-98); ARTERIAL BLOOD PCO2 43.7 mmHg (35-45); ARTERIAL BLOOD PO2 49.6 mmHg (80-100); ARTERIAL BLOOD TOTAL CO2 17.3 mmol/L (23-27)
[2020-08-19 10:53] LABS: ARTERIAL BLOOD PH 7.18 (7.35-7.45)
[2020-08-19 10:54] LABS: ARTERIAL BLOOD FIO2 100%
[2020-08-19 10:55] LABS: PATH REVIEW PATHOLOGIST REVIEWED
[2020-08-19] MEDS ORDERED: ETOMIDATE INJ/PF 20 MG/10 ML SDV IV ONE ×2 (10:57→13:27)
[2020-08-19] MEDS ORDERED: VANCOMYCIN HCL 1,500 MG in DEXTROSE 5%-WATER 250 ML IV ONE (11:00)
[2020-08-19] MEDS ORDERED: ACETAMINOPHEN 325 MG TABLET PO PRN (11:18)
[2020-08-19] MEDS ORDERED: CALCIUM GLUCONATE 1000 MG/10 ML INJ IV ONE (11:23)
[2020-08-19] MEDS ORDERED: PROPOFOL 1,000 MG/100 ML INFUS..BTL IV PRN (11:24)
[2020-08-19] MEDS: CLINDAMYCIN 600 MG/D5W RTU 600 MG/50 ML RTUPB IV SCH ×3 (11:36→21:56)
--- NOTE | 2020-08-19 11:38 | CRITICAL CARE ADMISSION REPORT ---
HPI Date:: 08/19/20 Time:: 10:30 Reason for ICU Reason:: Intubation Admission Date/Time & PCP: Admission Date/Time: 08/18/20 06:11 Primary Care Provider: RAUL VEGA MD HPI: MILLA HENDERSON is a 80 year old male Presents to the emergency department with weakness, shortness of breath, and one episode of hematemesis. Patient has a history of GI bleed secondary to extensive distal esophageal ulceration diagnosed by Yordan Restrepo and upper endoscopy approximately 6 months ago. No biopsies obtained. Patient now admitted for further evaluation. Overnight patient developed progressive respiratory distress, and atrial fibrillation with a rapid ventricular response. Medical intervention ensuing. Called this AM 08/19 to see patient after rapid response call. Patient admitted yesterday after an UGI bleed, likely his distal esophageal ulcers diagnosed 6 months ago. He had been progressively worsening with both his mental status and his respiratory function. Starting on a face mask and on bipap at 100% when I saw him. Obtunded. He was brought to the ICU for intubation done easily with # 7.5 ETT. Some thin liquid dark maroonish liquid noted coming from esophagus and entering the trachea a clear aspiration likely the reason for his decompensation. History obtained from:: Old records, nursing staff. - Diagnosis/Plan (1) Aspiration into airway Qualifiers: Encounter type: initial encounter Qualified Code(s): T17.908A - Unspecified foreign body in respiratory tract, part unspecified causing other injury, initial encounter Is this a current diagnosis for this admission?: Yes Plan: This likely has been going on most of the night and likely before. He was obtunded on bipap making him more of an aspiration risk. He needs intubation to protect airway. (2) Atrial fibrillation with rapid ventricular response Is this a current diagnosis for this admission?: Yes Plan: Chronic and likely a consequence of his aspiration and respiratory effort. (3) Hematemesis Qualifiers: Nausea presence: with nausea Qualified Code(s): K92.0 - Hematemesis Is this a current diagnosis for this admission?: Yes Plan: Obvious hemetemasis stopped. Silent aspiration ongoing. (4) COPD (chronic obstructive pulmonary disease) Qualifiers: COPD type: unspecified COPD Qualified Code(s): J44.9 - Chronic obstructive pulmonary disease, unspecified Is this a current diagnosis for this admission?: Yes Plan: Making his respiratory effort worse but not wheezing. (5) T2DM (type 2 diabetes mellitus) Qualifiers: Diabetes mellitus local intermodal truck driver insulin use: without local intermodal truck driver use Diabetes mellitus complication status: with neurologic complications Diabetes mellitus complication detail: with polyneuropathy Qualified Code(s): E11.42 - Type 2 diabetes mellitus with diabetic polyneuropathy Is this a current diagnosis for this admission?: Yes Plan: BG 340s. Needs more insulin. Plan Summary: Allow lungs to recover. Probably needs repeat EGD. Past Medical History Cardiac Medical History: Reports: Atrial Fibrillation, Coronary Artery Disease, Hyperlipidema, Hypertension Pulmonary Medical History: Reports: Chronic Obstructive Pulmonary Disease (COPD) Endocrine Medical History: Reports: Diabetes Mellitus Type 1, Diabetes Mellitus Type 2 GI Medical History: Reports: Gastroesophageal Reflux Disease Musculoskeltal Medical History: Reports: Arthritis Psychiatric Medical History: Reports: Depression, Post Traumatic Stress Disorder Past Surgical History Past Surgical History: Reports: Cardiac Catheterization, Coronary Stent, Ortho pedic Surgery - back from ruptured disc Social/Family History - Social History Smoking Status: Current Every Day Smoker Cigarettes Packs Per Day: 1.5 Frequency of Alcohol Use: None Hx Recreational Drug Use: No Drugs: None Hx Prescription Drug Abuse: No - Medication/Allergies Home Medications: Gabapentin [Neurontin] 600 mg PO QID 04/17/13 Rosuvastatin Calcium [Crestor 20 mg Tablet] 20 mg PO DAILY 04/17/13 Aspirin [Ecotrin 81 mg EC Tablet] 81 mg PO DAILY 03/14/20 Ezetimibe 10 mg PO DAILY 03/14/20 Insulin Aspart Prot/Insuln Asp [Novolog Mix 70-30 Flexpen] 26 unit SUBCUT MEALS 03/14/20 Magnesium Oxide 1,600 mg PO DAILY 03/14/20 Omeprazole 20 mg PO DAILY 03/14/20 Sitagliptin Phosphate [Januvia 50 mg Tablet] 100 mg PO DAILY 03/14/20 Clobetasol Propionate [Temovate 0.05% Cream 15 gm] 1 applic TP DAILY tube 03/21/20 Dapagliflozin Propanediol [Farxiga] 10 mg PO DAILY #200 tablet 03/21/20 Exenatide Microspheres [Bydureon Bcise] 2 mg SQ Q7D #1000 auto.injct 03/21/20 Insulin Lispro [Humalog Insulin (Lispro) 100 unit/mL] 0 - 12 unit SUBCUT ACHS unit 03/21/20 Oxycodone HCl [Oxy-Ir 5 mg Tablet] 15 mg PO Q6 #0 03/21/20 Pantoprazole Sodium [Protonix [address] Tablet] 40 mg PO BID tablet.dr 03/21/20 Sucralfate [Carafate 1 gm Tablet] 1 gm PO ACHS tablet 03/21/20 Allergies/Adverse Reactions: NSAIDS (Non-Steroidal Anti-Inflamma [Nsaids] Allergy (Unknown, Verified 08/19/20 09:04) adhesive [Adhesive] Allergy (Verified 08/18/20 00:29) Penicillins Allergy (Verified 08/18/20 00:29) yellow fever vaccine live Allergy (Verified 08/19/20 09:04) Review of Systems ROS unobtainable: Due to endotracheal tube, Due to mental status Physical Exam Vital Signs: Temp Pulse Resp BP Pulse Ox 97.6 F 128 H 33 H 144/92 H 79 L 08/19/20 11:17 08/19/20 11:17 08/19/20 11:17 08/19/20 11:17 08/19/20 11:17 Intake & Output 08/18/20 08/19/20 08/20/20 06:59 06:59 06:59 Intake Total 1240 977 833 Output Total 1800 Balance 1240 -823 833 Weight 69.853 kg 61 kg 66.1 kg Weight/Height Weight 66.1 kg Height 6 ft General appearance: PRESENT: no acute distress, thin Head exam: PRESENT: atraumatic, normocephalic Eye exam: PRESENT: conjunctiva pink, EOMI, PERRLA. ABSENT: scleral icterus Ear exam: PRESENT: normal external ear exam Mouth exam: PRESENT: moist, tongue midline Respiratory exam: PRESENT: clear to auscultation carmen, decreased breath sounds. ABSENT: rales, rhonchi, wheezes Cardiovascular exam: PRESENT: irregular rhythm, tachycardia. ABSENT: diastolic murmur, rubs, systolic murmur GI/Abdominal exam: PRESENT: normal bowel sounds, soft. ABSENT: distended, guarding, mass, organolmegaly, rebound, tenderness Rectal exam: PRESENT: deferred Gentrourinary exam: PRESENT: indwelling catheter Extremities exam: PRESENT: full ROM. ABSENT: calf tenderness, clubbing, pedal edema Musculoskeletal exam: PRESENT: normal inspection Neurological exam: PRESENT: altered, CN II-XII grossly intact, other - Obtunded. Skin exam: PRESENT: dry, intact, warm, other - [place] in color. ABSENT: cyanosis, rash Tubes/Lines: PRESENT: Endotracheal Tube, Nasogastic Tube Laboratory/Radiographs Laboratory Results: 08/19/20 05:30 08/19/20 05:30 08/18/20 08/18/20 08/18/20 14:28 15:22 15:22 WBC RBC Hgb Hct MCV MCH MCHC RDW Plt Count Seg Neutrophils % Carbonic Acid HCO3/H2CO3 Ratio ABG pH ABG pCO2 ABG pO2 ABG HCO3 ABG O2 Saturation ABG Base Excess FiO2 Sodium Potassium Chloride Carbon Dioxide Anion Gap BUN Creatinine Est GFR ( Amer) Glucose Calcium Phosphorus 2.5 Magnesium 1.8 Total Bilirubin AST Alkaline Phosphatase Ammonia 32.2 Total Protein Albumin Triglycerides Cholesterol LDL Cholesterol Direct VLDL Cholesterol HDL Cholesterol Amylase 42 Lipase 84.7 TSH 0.13 L Free T4 1.82 Urine Color Urine Appearance Urine pH Ur Specific [place] Urine Protein Urine Glucose (UA) Urine Ketones Urine Blood Urine Nitrite Ur Leukocyte Esterase Urine WBC (Auto) Urine RBC (Auto) 08/18/20 08/19/20 08/19/20 16:15 05:30 05:30 WBC 33.5 H* D RBC 5.10 Hgb 13.4 L D Hct 40.6 MCV 80 MCH 26.3 L MCHC 33.1 RDW 15.9 H Plt Count 265 Seg Neutrophils % Not Reportable Carbonic Acid HCO3/H2CO3 Ratio ABG pH ABG pCO2 ABG pO2 ABG HCO3 ABG O2 Saturation ABG Base Excess FiO2 Sodium 142.6 Potassium 3.5 L Chloride 110 H Carbon Dioxide 19 L Anion Gap 14 BUN 46 H Creatinine 0.72 Est GFR ( Amer) > 60 Glucose 358 H Calcium 10.1 Phosphorus Magnesium Total Bilirubin 0.6 AST 18 Alkaline Phosphatase 71 Ammonia Total Protein 6.1 L Albumin 3.5 Triglycerides 101 Cholesterol 76.51 LDL Cholesterol Direct < 30 VLDL Cholesterol 20.0 HDL Cholesterol 48 Amylase Lipase TSH Free T4 Urine Color STRAW Urine Appearance CLEAR Urine pH 6.0 Ur Specific [place] 1.023 Urine Protein 30 H Urine Glucose (UA) >=500 H Urine Ketones 80 H Urine Blood SMALL H Urine Nitrite NEGATIVE Ur Leukocyte Esterase NEGATIVE Urine WBC (Auto) 0 Urine RBC (Auto) 1 08/19/20 08/19/20 08:30 10:10 WBC RBC Hgb Hct MCV MCH MCHC RDW Plt Count Seg Neutrophils % Carbonic Acid 0.76 L 1.32 HCO3/H2CO3 Ratio 23:1 12:1 ABG pH 7.48 H 7.18 L* ABG pCO2 25.1 L 43.7 ABG pO2 40.9 L* 49.6 L ABG HCO3 18.1 L 16.0 L ABG O2 Saturation 81.0 L 75.6 L ABG Base Excess -3.5 -12.0 FiO2 15L 100% Sodium Potassium Chloride Carbon Dioxide Anion Gap BUN Creatinine Est GFR ( Amer) Glucose Calcium Phosphorus Magnesium Total Bilirubin AST Alkaline Phosphatase Ammonia Total Protein Albumin Triglycerides Cholesterol LDL Cholesterol Direct VLDL Cholesterol HDL Cholesterol Amylase Lipase TSH Free T4 Urine Color Urine Appearance Urine pH Ur Specific [place] Urine Protein Urine Glucose (UA) Urine Ketones Urine Blood Urine Nitrite Ur Leukocyte Esterase Urine WBC (Auto) Urine RBC (Auto) 08/18/20 08/18/20 08/18/20 14:28 14:28 15:22 Creatine Kinase 65 72 CK-MB (CK-2) 5.38 H Troponin I 0.026 08/18/20 08/19/20 08/19/20 19:22 01:42 01:42 Creatine Kinase 73 CK-MB (CK-2) 5.93 H 5.81 H Troponin I 0.041 0.045 Impressions: KUB X-Ray 08/18/20 13:44 IMPRESSION: TIP OF THE NASOGASTRIC TUBE IS IN THE STOMACH. Chest X-Ray 08/19/20 00:00 IMPRESSION: 1. Opacity in the left retrocardiac space - correlate with clinical findings to exclude a pneumonia. 2. Blunting of the left lateral costophrenic sulcus which could represent a small amount of pleural fluid. EKG: Pending All labs, radiographs, diagnostic studies and EKGs were personally reviewed: Yes In addition, reports of radiographic and diagnostic studies were read: Yes Critical Time Critical Time (minutes): 45 -: The care of a critically ill patient is dynamic. This note represents a static moment in the admission process. Orders and treatments may be given simult aneously and urgently, and time is not commissary representative of the treatment process. This patient requires Critical Care secondary to life threatening organ or limb dysfunction. Without Critical Care services, the patient is at risk for increased mortality and morbidity.
--- NOTE | 2020-08-19 11:59 | Operative Report ---
Bedside Procedure - History of Present Illness History of Present Illness: MILLA HENDERSON is a 80 year old male Presents to the emergency department with weakness, shortness of breath, and one episode of hematemesis. Patient has a history of GI bleed secondary to extensive distal esophageal ulceration diagnosed by Yordan Restrepo and upper endoscopy approximately 6 months ago. No biopsies obtained. Patient now admitted for further evaluation. Overnight patient developed progressive respiratory distress, and atrial fibrillation with a rapid ventricular response. Medical intervention ensuing. Called this AM 08/19 to see patient after rapid response call. Patient admitted yesterday after an UGI bleed, likely his distal esophageal ulcers diagnosed 6 months ago. He had been progressively worsening with both his mental status and his respiratory function. Starting on a face mask and on bipap at 100% when I saw him. Obtunded. He was brought to the ICU for intubation done easily with # 7.5 ETT. Some thin liquid dark maroonish liquid noted coming from esophagus and entering the trachea a clear aspiration likely the reason for his decompensation. Indication for Procedure: Increased WOB, obtundation. Date: 08/19/20 Provider: HOMER KATZ - Intubation Orotracheal Time of Intubation: 11:00 Airway evaluation: Normal anatomy Mallampati Classification: Class 1 Medications: Etomidate Intubation method: Orotracheal Blade type: Odilia Blade size: 4 Equipment used: Glidescope ETT size: 7.5 ETT secured at: Teeth ETT secured at (cm): 22 Post Intubation Xray: Yes Intubation Complications: No complications
--- NOTE | 2020-08-19 12:14 | RADIOLOGY REPORT (SQ) ---
EXAM DESCRIPTION: CHEST SINGLE VIEW IMAGES COMPLETED DATE/TIME: 08/19/2020 12:00 pm REASON FOR STUDY: Just intubated COMPARISON: AP view of the chest from 08/19/2020. EXAM PARAMETERS: NUMBER OF VIEWS: One view. TECHNIQUE: An AP view of the chest was obtained. RADIATION DOSE: NA LIMITATIONS: None. FINDINGS: LUNGS AND PLEURA: Unchanged opacities in the left retrocardiac space. MEDIASTINUM AND HILAR STRUCTURES: Stable mediastinal and hilar contours. HEART AND VASCULAR STRUCTURES: Stable cardiac silhouette. BONES: No acute findings. HARDWARE: The tip of the endotracheal tube projects 6.5 cm above the bonnie. The tip of the enteric tube projects within the gastric lumen. OTHER: No other finding. IMPRESSION: 1. Unchanged opacities in the left retrocardiac space. 2. Proper position of the endotracheal and enteric tubes. TECHNICAL DOCUMENTATION: JOB ID: [id number] [email or web address]- All Rights Reserved Reading location - IP/workstation name: [email or web address]
[2020-08-19] MEDS: PANTOPRAZOLE SODIUM 40 MG VIAL IV SCH ×2 (13:01→21:56)
[2020-08-19] MEDS: CALCIUM GLUCONATE 1 GM/NS 50 ML RTU IV SCH ×2 (13:01→13:52)
[2020-08-19] MEDS: AZTREONAM 1 GM in DEXTROSE 5%-WATER 50 ML IV SCH ×2 (13:01→18:43)
[2020-08-19] MEDS: RINGERS SOLUTION,LACTATED 1,000 ML IV PRN ×3 (13:08→21:57)
[2020-08-19] MEDS ORDERED: NORMAL SALINE 1000 ML 1,000 ML IV ONE ×2 (13:27→13:28)
[2020-08-19 13:40] LABS: ARTERIAL BLOOD H2CO3 1.72 mmol/L (1.05-1.35); ARTERIAL BLOOD HCO3 17.7 mmol/L (20-24); ARTERIAL BLOOD O2 SATURATION 83.3 % (94-98); ARTERIAL BLOOD PCO2 57.2 mmHg (35-45); ARTERIAL BLOOD PO2 63.1 mmHg (80-100); ARTERIAL BLOOD TOTAL CO2 19.5 mmol/L (23-27)
[2020-08-19] MEDS ORDERED: NOREPINEPHRINE BITARTRATE INJ/PF 4 MG/4 ML SDV IV ONE (13:40)
[2020-08-19] MEDS: DEXTROSE 5%-WATER 250 ML with NOREPINEPHRINE BITARTRATE 4 MG IV PRN ×4 (13:42→22:52)
[2020-08-19 13:47] LABS: ARTERIAL BLOOD FIO2 70%
[2020-08-19 13:48] LABS: ARTERIAL BLOOD PH 7.11 (7.35-7.45)
[2020-08-19] MEDS ORDERED: DIGOXIN INJ 0.5 MG/2 ML AMPULE IV ONE (15:18)
[2020-08-19] MEDS ORDERED: HYDROCORTISONE SOD SUCCINATE INJ/PF 100 MG/2 ML SDV IV SCH (15:30)
--- NOTE | 2020-08-19 17:38 | EKG REPORT ---
SEVERITY:- ABNORMAL ECG - ATRIAL FIBRILLATION RIGHT AXIS DEVIATION CONSIDER ANTEROSEPTAL INFARCT BORDERLINE T WAVE ABNORMALITIES PROLONGED QT INTERVAL : Confirmed by: Ralph Wallis MD 19-Aug-2020 17:37:08
[2020-08-19] MEDS ORDERED: SODIUM BICARBONATE 8.4% INJ 50 MEQ/50 ML DISP.SYRIN ONE ×2 (19:52→20:14)
[2020-08-19] MEDS ORDERED: VASOPRESSIN INJ 20 UNIT/1 ML VIAL ONE (19:56)
[2020-08-19] MEDS ORDERED: SODIUM BICARBONATE 8.4% INJ 50 MEQ/50 ML DISP.SYRIN IV ONE (20:15)
[2020-08-19] MEDS ORDERED: DEXTROSE 5%-WATER 250 ML with VASOPRESSIN 100 UNIT IV PRN ×2 (20:30)
[2020-08-19] MEDS: DIGOXIN INJ 0.5 MG/2 ML AMPULE IV SCH (21:12)
[2020-08-19 21:50] LABS: ALBUMIN 1.8 g/dL (3.5-5.0); ALKALINE PHOSPHATASE 47 U/L (38-126); ANION GAP 13 (5-19); ASPARTATE AMINO TRANSFERASE 55 U/L (17-59); BILIRUBIN,DIRECT 0.2 mg/dL (0.0-0.4); BILIRUBIN,TOTAL 0.4 mg/dL (0.2-1.3); BLOOD UREA NITROGEN 55 mg/dL (7-20); CALCIUM 8.7 mg/dL (8.4-10.2); CARBON DIOXIDE 21 mmol/L (22-30); CHLORIDE 111 mmol/L (98-107); GLUCOSE 282 mg/dL (75-110); HEMATOCRIT 35.4 % (37.9-51.0); HEMOGLOBIN 11.7 g/dL (13.5-17.0); MEAN CORPUSCULAR HEMOGLOBIN 27.9 pg (27.0-33.4); PLATELET COUNT 132 10^3/uL (150-450); POTASSIUM 3.1 mmol/L (3.6-5.0); RED BLOOD COUNT 4.19 10^6/uL (4.35-5.55); RED CELL DISTRIBUTION WIDTH 16.2 % (11.5-14.0); TOTAL PROTEIN 3.7 g/dL (6.3-8.2); WHITE BLOOD COUNT 28.9 10^3/uL (4.0-10.5)
[2020-08-19 21:54] LABS: MEAN CORPUSCULAR VOLUME 85 fl (80-97)
[2020-08-19 22:14] LABS: ABSOLUTE MONOCYTES # (MANUAL) 0.3 10^3/uL (0.1-1.4); BASOPHILS % (MANUAL) 0 % (0-2); EOSINOPHILS % (MANUAL) 0 % (0-6); LYMPHOCYTES % (MANUAL) 5 % (13-45); MONOCYTES % (MANUAL) 1 % (3-13); SEGMENTED NEUTROPHILS % (MAN) 79 % (42-78); TOTAL CELLS COUNTED 100
[2020-08-19 22:19] LABS: ANISOCYTOSIS 1+; BURR CELLS 1+; OVALOCYTES SLIGHT; PLATELET COMMENT DECREASED; PLATELET LARGE PRESENT
[2020-08-19 22:23] LABS: BAND NEUTROPHILS % (MANUAL) 13 % (3-5)
[2020-08-19] MEDS: VANCOMYCIN HCL 1,000 MG in DEXTROSE 5%-WATER 250 ML IV SCH (23:26)
[2020-08-20] MEDS: DIGOXIN INJ 0.5 MG/2 ML AMPULE IV SCH ×2 (02:18→09:27)
[2020-08-20] MEDS: AZTREONAM 1 GM in DEXTROSE 5%-WATER 50 ML IV SCH ×2 (02:18→09:28)
[2020-08-20] MEDS ORDERED: VASOPRESSIN INJ 20 UNIT/1 ML VIAL IV ONE (02:45)
--- NOTE | 2020-08-20 03:11 | Operative Report ---
Bedside Procedure - History of Present Illness Indication for Procedure: Hemodynamic Monitoring Date: 08/19/20 Provider: LONNIE STOKES - Additional Procedures Arterial Line Time performed: 20:30 Notes: Procedure: Arterial Line Placement Provider: ARIC Calderón Indication: A time-out was completed verifying correct patient, procedure, and site. Allens test was performed to ensure adequate perfusion. Patients right wrist was prepped and draped in the usual sterile fashion. A 20g Arrow arterial line was introduced into the radial artery. Catheter was threaded, and the needle was removed with appropriate blood return. Good waveform was observed. The patient tolerated the procedure well. Blood Loss: Minimal Complications: None
[2020-08-20 04:50] LABS: ANION GAP 11 (5-19); BLOOD UREA NITROGEN 53 mg/dL (7-20); CALCIUM 8.7 mg/dL (8.4-10.2); CARBON DIOXIDE 21 mmol/L (22-30); CHLORIDE 113 mmol/L (98-107); GLUCOSE 292 mg/dL (75-110); POTASSIUM 3.4 mmol/L (3.6-5.0)
[2020-08-20 05:09] LABS: HEMATOCRIT 44.1 % (37.9-51.0); MEAN CORPUSCULAR HEMOGLOBIN 27.2 pg (27.0-33.4); MEAN CORPUSCULAR HGB CONC 33.4 g/dL (32.0-36.0); MEAN CORPUSCULAR VOLUME 82 fl (80-97); RED BLOOD COUNT 5.41 10^6/uL (4.35-5.55); RED CELL DISTRIBUTION WIDTH 16.1 % (11.5-14.0); WHITE BLOOD COUNT 20.9 10^3/uL (4.0-10.5)
[2020-08-20] MEDS: CLINDAMYCIN 600 MG/D5W RTU 600 MG/50 ML RTUPB IV SCH ×2 (05:11→15:10)
[2020-08-20] MEDS: INSULIN LISPRO 100 UNIT/ML 3 ML VIAL SUBCUT SCH ×2 (05:11→12:18)
[2020-08-20 05:13] LABS: HEMOGLOBIN 14.7 g/dL (13.5-17.0)
[2020-08-20 05:14] LABS: PLATELET COUNT 90 10^3/uL (150-450)
[2020-08-20 05:19] LABS: ABSOLUTE LYMPHOCYTES# (MANUAL) 0.6 10^3/uL (0.5-4.7); ABSOLUTE MONOCYTES # (MANUAL) 0.4 10^3/uL (0.1-1.4); BAND NEUTROPHILS % (MANUAL) 5 % (3-5); BASOPHILS % (MANUAL) 0 % (0-2); EOSINOPHILS % (MANUAL) 0 % (0-6); LYMPHOCYTES % (MANUAL) 3 % (13-45); MONOCYTES % (MANUAL) 2 % (3-13); SEGMENTED NEUTROPHILS % (MAN) 90 % (42-78); TOTAL CELLS COUNTED 100
[2020-08-20 05:26] LABS: ANISOCYTOSIS 1+; BURR CELLS 2+; OVALOCYTES 1+; POIKILOCYTOSIS 1+; SCHISTOCYTES 1+; TEAR DROP CELLS SLIGHT; TOXIC GRANULATION SLIGHT
[2020-08-20 05:27] LABS: PLATELET COMMENT DECREASED
[2020-08-20] MEDS: PANTOPRAZOLE SODIUM 40 MG VIAL IV SCH (10:16)
[2020-08-20 11:26] LABS: PATH REVIEW PATHOLOGIST REVIEWED
[2020-08-20] MEDS: VANCOMYCIN HCL 1,000 MG in DEXTROSE 5%-WATER 250 ML IV SCH (12:20)
[2020-08-20] MEDS ORDERED: MORPHINE SULFATE 10 MG/ML INJ IV PRN (14:33)
--- NOTE | 2020-08-20 14:59 | PDOC CRITICAL CARE PROG REPORT ---
General Date:: 08/20/20 ICU Day:: 2 Ventilator Day:: 2 Hospital Day:: 2 Resuscitation Status: Do Not Resuscitate Events in the past 12 to 24 Hours:: Arrested from presumed rebleed. Family made him DNR. Still intubated and on pressors. Review of systems relevant to events:: Neurologcal, CV, GI. Reason for ICU Addmission:: Intubation - Medications: Medications reviewed and adjusted accordingly: Yes Vasopressors:: Vasopressin, levophed off. Sedation:: None Physical Exam Vital Signs: Temp Pulse Resp BP Pulse Ox 98.7 F 104 H 26 H 115/44 L 98 08/20/20 12:00 08/20/20 12:00 08/20/20 12:00 08/20/20 12:00 08/20/20 12:00 Intake & Output 08/19/20 08/20/20 08/21/20 06:59 06:59 06:59 Intake Total 977 4533 Output Total 1800 2085 255 Balance -823 2448 -255 Weight 61 kg 69.8 kg Weight/Height Weight 69.8 kg Height 6 ft General appearance: PRESENT: no acute distress Head exam: PRESENT: atraumatic, normocephalic Eye exam: PRESENT: conjunctiva pink, PERRLA. ABSENT: scleral icterus Ear exam: PRESENT: normal external ear exam Mouth exam: PRESENT: moist, tongue midline Respiratory exam: PRESENT: clear to auscultation carmen. ABSENT: rales, rhonchi, wheezes Cardiovascular exam: PRESENT: RRR, tachycardia. ABSENT: diastolic murmur, rubs, systolic murmur GI/Abdominal exam: PRESENT: normal bowel sounds, soft. ABSENT: distended, guarding, mass, organolmegaly, rebound, tenderness Rectal exam: PRESENT: deferred Extremities exam: PRESENT: full ROM. ABSENT: calf tenderness, clubbing, pedal edema Musculoskeletal exam: PRESENT: normal inspection Psychiatric exam: PRESENT: other - Essentially unresponsive. Oculocephalic and apnea test not checked. No cough, gag reflex, no doll's eyes response. No movement to voice, touch pain. GCS 3. Tubes/Lines: PRESENT: Endotracheal Tube, Central Line Laboratory/Radiographs Laboratory Results: 08/20/20 04:09 08/20/20 04:09 08/18/20 08/19/20 08/19/20 05:00 20:17 20:17 WBC 28.9 H RBC 4.19 L Hgb 11.7 L Hct 35.4 L MCV 85 D MCH 27.9 MCHC 33.0 RDW 16.2 H Plt Count 132 L Seg Neutrophils % Not Reportable Sodium 145.2 H Potassium 3.1 L Chloride 111 H Carbon Dioxide 21 L Anion Gap 13 BUN 55 H Creatinine 1.52 H Est GFR ( Amer) 54 L Glucose 282 H Lactic Acid Calcium 8.7 Total Bilirubin 0.4 AST 55 Alkaline Phosphatase 47 Total Protein 3.7 L Albumin 1.8 L Blood Type B NEGATIVE Antibody Screen NEGATIVE 08/19/20 08/20/20 08/20/20 20:17 04:09 04:09 WBC 20.9 H RBC 5.41 Hgb 14.7 D Hct 44.1 MCV 82 MCH 27.2 MCHC 33.4 RDW 16.1 H Plt Count 90 L Seg Neutrophils % Not Reportable Sodium 145.3 H Potassium 3.4 L Chloride 113 H Carbon Dioxide 21 L Anion Gap 11 BUN 53 H Creatinine 1.26 H Est GFR ( Amer) > 60 Glucose 292 H Lactic Acid 9.5 H Calcium 8.7 Total Bilirubin AST Alkaline Phosphatase Total Protein Albumin Blood Type Antibody Screen 08/18/20 16:15 Catheterized Urine Urine Culture - Final NO GROWTH 2 DAYS 08/18/20 08/18/20 08/18/20 14:28 14:28 15:22 Creatine Kinase 65 72 CK-MB (CK-2) 5.38 H Troponin I 0.026 08/18/20 08/19/20 08/19/20 19:22 01:42 01:42 Creatine Kinase 73 CK-MB (CK-2) 5.93 H 5.81 H Troponin I 0.041 0.045 08/19/20 20:17 Creatine Kinase CK-MB (CK-2) Troponin I 1.290 Impressions: KUB X-Ray 08/18/20 13:44 IMPRESSION: TIP OF THE NASOGASTRIC TUBE IS IN THE STOMACH. Chest X-Ray 08/19/20 11:22 IMPRESSION: 1. Unchanged opacities in the left retrocardiac space. 2. Proper position of the endotracheal and enteric tubes. All labs, radiographs, diagnostic studies and EKGs were personally reviewed: Yes In addition, reports of radiographic and diagnostic studies were read: Yes Assessment and Plan - Diagnosis (1) Aspiration into airway Qualifiers: Encounter type: initial encounter Qualified Code(s): T17.908A - Unspecified foreign body in respiratory tract, part unspecified causing other injury, initial encounter Is this a current diagnosis for this admission?: Yes Plan: Seen at the time of intubation and strongly suspected. (2) Atrial fibrillation with rapid ventricular response Is this a current diagnosis for this admission?: Yes Plan: Rate more controlled. (3) Hematemesis Qualifiers: Nausea presence: with nausea Qualified Code(s): K92.0 - Hematemesis Is this a current diagnosis for this admission?: Yes Plan: Rebleeding last night resulted in his arrest. (4) COPD (chronic obstructive pulmonary disease) Qualifiers: COPD type: unspecified COPD Qualified Code(s): J44.9 - Chronic obstructive pulmonary disease, unspecified Is this a current diagnosis for this admission?: Yes Plan: Not active. (5) T2DM (type 2 diabetes mellitus) Qualifiers: Diabetes mellitus care home insulin use: without emt intermediate use Diabetes mellitus complication status: with neurologic complications Diabetes mellitus complication detail: with polyneuropathy Qualified Code(s): E11.42 - Type 2 diabetes mellitus with diabetic polyneuropathy Is this a current diagnosis for this admission?: Yes Plan: BG fairly high around 300. Plan Summary: I have spoken with patient's family-daughter and . They are of the opinion that he would not want this level of aggressive care and request an extubation and withdraw of care. So ordered. Critical Time Critical Time (minutes): 40 Level of Care: MEDICAL Anticipated discharge: Hospice Anticipated DC Timeframe: Other -: 1. The care of a critical patient is a dynamic process. This note is a nutrition representative synopsis but static in nature. The timeframe for treatments given in order is not necessarily the actual time these treatments may have been done. 2. This patient requires critical care secondary to ongoing requirements for therapy not offered or safe outside the critical care environment. Transfer to a lower level of care will result in altered life or limb morbidity and mortality. 3. Multidisciplinary rounds completed. 4. ABCDE bundle addressed.
[2020-08-20] MEDS ORDERED: EPINEPHRINE INJ 1 MG/10 ML DISP.SYRIN ONE (15:12)
[2020-08-20] MEDS ORDERED: CALCIUM GLUCONATE 1000 MG/10 ML INJ IV ONE (15:12)
--- NOTE | 2020-08-20 15:37 | Death Summary ---
Summary Date : 08/20/20 Time of :: 14:53 Autopsy: No Resuscitation Status: Comfort Measures Only - Final Diagnosis (1) Aspiration into airway Is this a current diagnosis for this admission?: Yes (2) Atrial fibrillation with rapid ventricular response Is this a current diagnosis for this admission?: Yes (3) Hematemesis Is this a current diagnosis for this admission?: Yes (4) COPD (chronic obstructive pulmonary disease) Is this a current diagnosis for this admission?: Yes (5) T2DM (type 2 diabetes mellitus) Is this a current diagnosis for this admission?: Yes Hospital Course:: This patient was admitted to the ICU and was intubated for aspiration of blood secondary to UGI bleeding presumably from esophageal ulcers. He was not stable enough for endoscopy due to hypotension, rapid afib. 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 He was rescusitated. However the family stated he did not want aggrssive care which was then withdrawn. He peacefully with family at 14:53 08/20/20.
[2020-08-20 16:01] VITALS: BP 133/50
== END 2020-08-20 19:50 | DRG 208 ==
LOC: ER 00:08 → INTOOBSV 06:11 → EH 06:11 → 3S 07:57 → OBSVTOIN 13:27 → ICU 08-19 10:25
PROVIDERS: ADMIT Anesthesiology; ATTEND Anesthesiology
PROC: 5A1945Z Respiratory Ventilation, 24-96 Consecutive Hours (ICD-10-PCS; principal; 2020-08-19)
PROC: 5A09357 Assistance with Respiratory Ventilation, Less than 24 Consecutive Hours, Continuous Positive Airway Pressure (ICD-10-PCS; 2020-08-19)
PROC: 0BH17EZ Insertion of Endotracheal Airway into Trachea, Via Natural or Artificial Opening (ICD-10-PCS; 2020-08-19)
PROC: 03HY32Z Insertion of Monitoring Device into Upper Artery, Percutaneous Approach (ICD-10-PCS; 2020-08-19)
PROC: 30233N1 Transfusion of Nonautologous Red Blood Cells into Peripheral Vein, Percutaneous Approach (ICD-10-PCS; 2020-08-19)
DX: T17.998A Other foreign object in respiratory tract, part unspecified causing other injury, initial encounter (principal); K22.11 Ulcer of esophagus with bleeding; I48.20 Chronic atrial fibrillation, unspecified; Z20.828 Contact with and (suspected) exposure to other viral communicable diseases; J44.9 Chronic obstructive pulmonary disease, unspecified; I95.9 Hypotension, unspecified; X58.XXXA Exposure to other specified factors, initial encounter; I46.9 Cardiac arrest, cause unspecified; I25.10 Atherosclerotic heart disease of native coronary artery without angina pectoris; E78.5 Hyperlipidemia, unspecified; I10 Essential (primary) hypertension; K21.9 Gastro-esophageal reflux disease without esophagitis; F32.9 Major depressive disorder, single episode, unspecified; F43.10 Post-traumatic stress disorder, unspecified; F17.210 Nicotine dependence, cigarettes, uncomplicated; E11.42 Type 2 diabetes mellitus with diabetic polyneuropathy; Z66 Do not resuscitate; Z95.5 Presence of coronary angioplasty implant and graft; Z80.6 Family history of leukemia; Z82.49 Family history of ischemic heart disease and other diseases of the circulatory system; Z79.899 Other long term (current) drug therapy; Z79.4 Long term (current) use of insulin; Z79.82 Long term (current) use of aspirin; Z79.891 Long term (current) use of opiate analgesic; Z88.0 Allergy status to penicillin; Z88.8 Allergy status to other drugs, medicaments and biological substances; Z88.7 Allergy status to serum and vaccine; Z78.1 Physical restraint status
CPT/HCPCS: 0202U; 31500; 36415; 36430; 36620; 71045; 74018; 80048; 80053; 80061; 81001; 82140; 82150; 82533; 82550; 82553; 82803; 82962; 83036; 83605; 83690; 83735; 84100; 84439; 84443; 84484; 85025; 85610; 85730; 86850; 86900; 86901; 86920; 87040; 87070; 87086; 92950; 93005; 93010; 94002; 94003; 99222; 99281; 99291; J0610; C9113; J0171; J1160; J1720; J1815; J2270; J2405; J3370; J3480; J3490; J7030; J7060; J7120; P9016